=== PATIENT | male | born 1975 | race Caucasian/White ===

== ENCOUNTER 2020-06-09 15:57 | Inpatient (IN) | payer OTHER ==
[2020-06-09 19:30] VITALS: BMI 22.4
--- NOTE | 2020-06-09 20:36 | HP ---
CIWA Score Nausea/Vomitin Muscle Tremors: 3 Anxiety: 3 Agitation: 3 Paroxysmal Sweats: 2 Orientation: 0-Oriented Tacttile Disturbances: 0-None Auditory Disturbances: 0-None Visual Disturbances: 0-None Headache: 0-None Present CIWA-Ar Total Score: 13 - Admission Criteria OASAS Guidelines: Admission for Medically Managed Detox: Requires at least one of the followin. CIWA greater than 12 2. Seizures within the past 24 hours 3. Delirium tremens within the past 24 hours 4. Hallucinations within the past 24 hours 5. Acute intervention needed for co occurring medical disorder 6. Acute intervention needed for co occurring psychiatric disorder 7. Severe withdrawal that cannot be handled at a lower level of care (continued vomiting, continued diarrhea, abnormal vital signs) requiring intravenous medication and/or fluids 8. Admitting History and Physical - Smoking History Smoking history: Current every day smoker Have you smoked in the past 12 months: Yes Aproximately how many cigarettes per day: 20 Admission ROS [facility] - [facility] Chief Complaint: Alcohol withdrawal symptoms, on MMTP Allergies/Adverse Reactions: Allergies Allergy/AdvReac Type Severity Reaction Status Date / Time aspirin Allergy Verified 06/09/20 19:24 Penicillins Allergy Verified 06/09/20 19:24 Seafood Allergy Uncoded 06/09/20 19:24 History of Present Illness: 45 years old male with a long history of alcohol dependence is seeking admission to detox. This is his first detoxification at [facility], his last detox was at [facility]. Patient reports that he drinks 3 pints of Vodka and 1 six pack of beer daily for the past 5 years. He has medical history of asthma, denies psych. history and suicidal ideation at this time. He reports + eye pattern mechanic, blackouts (last blackout was in April 2020) and denies suicidal ideation at this time. He is unemployed, lives alone in an apartment and denies any legal issues. He is on Methadone 50mg tablet oral daily at [facility]. Dose is yet to be verified by nurse. Exam Limitations: No Limitations - Ebola screening Have you traveled outside of the country in the last 21 days: No Have you had contact with anyone from an Ebola affected area: No Have you been sick,other than usual withdrawal symptoms: No Do you have a fever: No - Review of Systems Constitutional: Chills, Loss of Appetite, Malaise, Night Sweats, Changes in sleep EENT: reports: Nose Congestion Respiratory: reports: No Symptoms reported Cardiac: reports: No Symptoms Reported GI: reports: Nausea, Poor Appetite, Poor Fluid Intake, Abdominal cramping : reports: No Symptoms Reported Musculoskeletal: reports: No Symptoms Reported Integumentary: reports: Dryness, Flushing Neuro: reports: Tremors Endocrine: reports: No Symptoms Reported Hematology: reports: No Symptoms Reported Psychiatric: reports: Mood/Affect Appropiate, Orientated x3 Other Systems: Reviewed and Negative Patient History - Patient Medical History Hx Anemia: No Hx Asthma: Yes (Not on medication) Hx Chronic Obstructive Pulmonary Disease (COPD): No Hx Cancer: No Hx Cardiac Disorders: No Hx Congestive Heart Failure: No Hx Hypertension: No Hx Hypercholesterolemia: No Hx Pacemaker: No HX Cerebrovascular Accident: No Hx Seizures: No Hx Dementia: No Hx Diabetes: No Hx Gastrointestinal Disorders: No Hx Liver Disease: No Hx Genitourinary Disorders: No Hx Sexually Transmitted Disorders: No Hx Renal Disease (ESRD): No Hx Thyroid Disease: No Hx Human Immunodeficiency Virus (HIV): No (Negative 2019) Hx Hepatitis C: No Hx Depression: No Hx Suicide Attempt: No (Denies suicidal ideation at this time) Hx Bipolar Disorder: No Hx Schizophrenia: No - Patient Surgical History Past Surgical History: Yes Hx Neurologic Surgery: No Hx Cataract Extraction: No Hx Cardiac Surgery: No Hx Lung Surgery: No Hx Abdominal Surgery: No Hx Appendectomy: No Hx Cholecystectomy: No Hx Genitourinary Surgery: No Hx Orthopedic Surgery: Yes (Jaw surgery 1997) Anesthesia Reaction: No - PPD History Previous Implant?: Yes Documented Results: Negative w/o proof Implanted On Prior R Admission?: No PPD to be Administered?: Yes - Reproductive History Patient is a Female of Child Bearing Age (11 -55 yrs old): No (Male) - Smoking Cessation Smoking history: Current every day smoker Have you smoked in the past 12 months: Yes Aproximately how many cigarettes per day: 20 Hx Chewing Tobacco Use: No Initiated information on smoking cessation: Yes 'Breaking Loose' booklet given: 06/09/20 - Substance & Tx. History Hx Alcohol Use: Yes Hx Substance Use: Yes Substance Use Type: Alcohol, Heroin, Prescribed (Methadone) Hx Substance Use Treatment: Yes (Marius[facility] COVARRUBIAS) - Substances abused Alcohol Substance route: Oral Frequency: Daily Amount used: liquor- 3 pints Vodka, beer- 1 six pk Age of first use: 21 Date of last use: 06/09/20 Heroin Substance route: Inhalation Frequency: Daily Amount used: 10 bags Age of first use: 22 Date of last use: 06/09/20 Admission Physical Exam [facility] - Vital Signs Vital Signs: Vital Signs - 24 hr 06/09/20 19:25 Temperature 97.3 F L Pulse Rate 53 L Respiratory 18 Rate Blood Pressure 132/87 - Physical General Appearance: Yes: Moderate Distress, Tremorous, Sweating, Anxious HEENTM: Yes: Within Normal Limits Respiratory: Yes: Lungs Clear, Normal Breath Sounds, No Respiratory Distress Neck: Yes: Within Normal Limits Breast: Yes: Breast Exam Deferred Cardiology: Yes: Bradycardia Abdominal: Yes: Normal Bowel Sounds, Soft Genitourinary: Yes: Within Normal Limits Back: Yes: Normal Inspection Musculoskeletal: Yes: Within Normal Limits Extremities: Yes: Tremors Neurological: Yes: Within Normal Limits, Alert, Normal Mood/Affect Integumentary: Yes: Warm Lymphatic: Yes: Within Normal Limits - Diagnostic (1) Alcohol dependence with withdrawal, uncomplicated Current Visit: Yes Status: Acute (2) Asthma Current Visit: Yes Status: Chronic Qualifiers: Asthma severity: mild Asthma persistence: intermittent Asthma complication type: uncomplicated Qualified Code(s): J45.20 - Mild intermittent asthma, uncomplicated (3) Nicotine dependence Current Visit: Yes Status: Chronic Qualifiers: Nicotine product type: cigarettes Substance use status: uncomplicated Qualified Code(s): F17.210 - Nicotine dependence, cigarettes, uncomplicated (4) Methadone maintenance therapy patient Current Visit: Yes Status: Chronic Cleared for Admission [facility] - Detox or Rehab [facility] Level of Care: Medically Managed Detox Regimen/Protocol: Librium Claeared for Rehab Admission: No Breathalyzer - Breathalyzer Breathalyzer: 0.003 Urine Drug Screen - Test Device Lot number: [id number] Expiration date: 07/10/22 - Control Is test valid?: No - Results Drug screen NEGATIVE: No Urine drug screen results: FEN-Fentanyl, MOP-Opiates, MTD-Methadone Inpatient Rehab Admission - Rehab Decision to Admit Inpatient rehab admission?: No
[2020-06-09] MEDS ORDERED: ACETAMINOPHEN 325 MG TABLET (FP) PO PRN ×2 (20:44)
[2020-06-09] MEDS ORDERED: MAGNESIUM HYDROX 2400MG/30ML ORAL SUSPENSION 30 ML CUP PO PRN (20:44)
[2020-06-09] MEDS ORDERED: MENTHOL/PHENOL 1 EACH UD MM PRN (20:44)
[2020-06-09] MEDS ORDERED: chlordiazePOXIDE HCL 25 MG CAPSULE PO PRN (20:44)
[2020-06-09] MEDS ORDERED: hydrOXYzine PAMOATE 25 MG CAPSULE (FP) PO PRN (20:44)
[2020-06-09] MEDS ORDERED: MAGNESIUM CITRATE 300 ML BOTTLE PO PRN (20:44)
[2020-06-09] MEDS ORDERED: BISMUTH SUBSALICYLATE 524 MG/30 ML UD PO PRN (20:44)
[2020-06-09] MEDS ORDERED: NICOTINE POLACRILEX 2 MG GUM BUC PRN (20:44)
[2020-06-09] MEDS ORDERED: ONDANSETRON *ODT* 4 MG TABLET SL ONE (20:44)
[2020-06-09] MEDS: MELATONIN 5 MG TABLETS PO SCH (22:14)
[2020-06-09] MEDS: chlordiazePOXIDE HCL 25 MG CAPSULE PO SCH (22:14)
[2020-06-09] MEDS: THIAMINE HCL 100 MG TABLET (FP) PO SCH (22:15)
[2020-06-10] MEDS: chlordiazePOXIDE HCL 25 MG CAPSULE PO SCH ×4 (05:41→22:11)
[2020-06-10] MEDS: PRENATAL VITAMINS W/ FOLIC ACID TABLET (FP) PO SCH (10:11)
[2020-06-10] MEDS: NICOTINE 21 MG/24 HOURS TOPICAL PATCH TD SCH (10:11)
[2020-06-10] MEDS ORDERED: P-EPHED 60MG/TRIPROLIDI 2.5MG TABLET PO PRN (10:19)
[2020-06-10 10:55] LABS: HEMATOCRIT 36.5 % (35.4-49); HEMOGLOBIN 11.5 GM/dL (11.7-16.9); MCHC 31.6 g/dl (32.0-35.9); MEAN CELL VOLUME 82.1 fl (80-96); MEAN PLT VOLUME 8.3 fl (7.5-11.1); PLATELET COUNT 257 K/MM3 (134-434); RBC 4.44 M/mm3 (4.00-5.60); RDW 17.4 % (11.9-15.9); WHITE BLOOD COUNT 6.4 K/mm3 (4.0-10.0)
--- NOTE | 2020-06-10 11:16 | CONSULT ---
[facility] Psychiatric Consult - Data Date of interview: 06/10/20 Admission source: [facility] Identifying data: First visit to [facility] and admission to [address] [place] [address] for this 45 y/o male self-referred for detoxification treatment. JOVANY issues : alcohol, heroin, benzodiazepine (xanax), nicotine. Patient is , no dependents, unemployed, homeless and supported on Public Assistance. Substance Abuse History: Discussed with the patient. JOVANY profile as follows : Smoking history: Current every day smoker. Have you smoked in the past 12 months: Yes. Aproximately how many cigarettes per day: 20. Hx Chewing Tobacco Use: No. Initiated information on smoking cessation: Yes. 'Breaking Loose' booklet given: 06/09/20. - Substance & Tx. History. Hx Alcohol Use: Yes. Hx Substance Use: Yes. Substance Use Type: Alcohol, Heroin, Prescribed (Methadon e). Hx Substance Use Treatment: Yes ([facility]arius[facility] COVARRUBIAS). - Substances abused. Alcohol. Substance route: Oral. Frequency: Daily. Amount used: liquor- 3 pints Vodka, beer- 1 six pk. Age of first use: 21. Date of last use: 06/09/20. Heroin. Substance route: Inhalation. Frequency: Daily. Amount used: 10 bags. Age of first use: 22. Date of last use: 06/09/20 Medical History: Medical profile is remarkable for bronchial asthma + antecedent of surgery (fracture of jaw) in 1997. Noted report of allergy to ASA and penicillins. Psychiatric History: Patient endorses a distant history (seven years ago) of psychiatric hospitalization (3 day retention) at [facility] [place] " because of a misunderstanding." Mr Huerta explains that he was brought to the hospital while " high on drugs " and kept because of suicidal threats. Currently the patient is on methadone maintenance (50 mg/day) at [facility]. No history of suicide attempts. Physical/Sexual Abuse/Trauma History: Recent trauma : of (pneumonia). Additional Comment: Urine drug screen results: FEN-Fentanyl, MOP-Opiates, MTD- Methadone. Noted. Mental Status Exam - Mental Status Exam Alert and Oriented to: Time, Place, Person Cognitive Function: Good Patient Appearance: Well Groomed Mood: Withdrawn, Hopeful Affect: Mood Congruent, Constricted Patient Behavior: Fatigued, Appropriate, Cooperative Speech Pattern: Clear, Appropriate Voice Loudness: Normal Thought Process: Intact, Goal Oriented Thought Disorder: Not Present Hallucinations: Denies Suicidal Ideation: Denies Homicidal Ideation: Denies Insight/Judgement: Poor Sleep: Poorly, Difficulty falling asleep Appetite: Good Gait/Station: Normal Psychiatric Findings - Problem List ([place] 1, 2,3) (1) Alcohol dependence with withdrawal, uncomplicated Current Visit: Yes Status: Acute (2) Opioid dependence on agonist therapy Current Visit: Yes Status: Chronic (3) Nicotine dependence Current Visit: Yes Status: Chronic Qualifiers: Nicotine product type: cigarettes Substance use status: uncomplicated Qualified Code(s): F17.210 - Nicotine dependence, cigarettes, uncomplicated (4) Substance induced mood disorder Current Visit: Yes Status: Chronic (5) Insomnia Current Visit: Yes Status: Chronic - Initial Treatment Plan Initial Treatment Plan: Psychoeducation. Sleep hygiene. Detoxification in progress. Support and empathy provided in this session. Patient reports history of good response to trazodone in the past. Wants inclusion of that drug in his current regimen of medications. Trazodone 50 mg po hs. Ordered after discussion of side effects/benefits. Patient made aware of risk of priapism. Gave his consent to MD (verbal). Observation.
[2020-06-10] MEDS: METHADONE HCL 10 MG TABLET PO SCH (11:32)
[2020-06-10 11:38] LABS: SICKLE CELL SCREEN NEGATIVE (NEGATIVE)
--- NOTE | 2020-06-10 11:43 | PN ---
[facility] CIWA - CIWA Score Nausea/Vomitin-No Nausea/No Vomiting Muscle Tremors: 2 Anxiety: 3 Agitation: 0-Normal Activity Paroxysmal Sweats: 3 Orientation: 0-Oriented Tacttile Disturbances: 0-None Auditory Disturbances: 0-None Visual Disturbances: 0-None Headache: 2-Mild CIWA-Ar Total Score: 10 S Progress Note (SOAP) Subjective: c/o sweats, anxiety, shakes, and headache. Objective: 06/10/20 11:42 Vital Signs 06/10/20 06/10/20 06:47 08:43 Temperature 98.2 F 97.4 F L Pulse Rate 56 L 55 L Respiratory 18 18 Rate Blood Pressure 118/73 125/80 O2 Sat by Pulse 96 Oximetry (%) Laboratory Last Values WBC 6.4 K/mm3 (4.0-10.0) 06/10/20 07:30 RBC 4.44 M/mm3 (4.00-5.60) 06/10/20 07:30 Hgb 11.5 GM/dL (11.7-16.9) L 06/10/20 07:30 Hct 36.5 % (35.4-49) 06/10/20 07:30 MCV 82.1 fl (80-96) 06/10/20 07:30 MCH 26.0 pg (25.7-33.7) 06/10/20 07:30 MCHC 31.6 g/dl (32.0-35.9) L 06/10/20 07:30 RDW 17.4 % (11.9-15.9) H 06/10/20 07:30 Plt Count 257 K/MM3 (134-434) 06/10/20 07:30 MPV 8.3 fl (7.5-11.1) 06/10/20 07:30 Sickle Cell Screen Negative (NEGATIVE) 06/10/20 07:30 Syphilis Serology Non-reactive (NONREACTIVE) 06/10/20 07:30 chemistry pending. Assessment: 06/10/20 11:44 AOX3, in no acute respiratory distress. Full ROM, ambulating in the unit. Withdrawal symptoms. Plan: continue detox.
[2020-06-10 12:58] LABS: ALBUMIN 3.2 g/dl (3.4-5.0); BILIRUBIN,TOTAL 0.4 mg/dL (0.2-1); CALCIUM 8.6 mg/dL (8.5-10.1); POTASSIUM 3.9 mmol/L (3.5-5.1); TOT PROT 6.1 g/dl (6.4-8.2)
[2020-06-10] MEDS: MAG HYDROX/AL HYDROX/SIMETH 30 ML UNIT-DOSE CUP PO PRN (20:18)
[2020-06-10] MEDS: MELATONIN 5 MG TABLETS PO SCH (22:11)
[2020-06-10] MEDS: traZODone HCL 50 MG TABLET (FP) PO SCH (22:11)
[2020-06-10] MEDS: THIAMINE HCL 100 MG TABLET (FP) PO SCH (22:11)
[2020-06-11] MEDS: METHADONE HCL 10 MG TABLET PO SCH (05:50)
[2020-06-11] MEDS: chlordiazePOXIDE HCL 25 MG CAPSULE PO SCH ×4 (05:51→23:13)
[2020-06-11] MEDS: traZODone HCL 50 MG TABLET (FP) PO SCH (09:30)
--- NOTE | 2020-06-11 10:07 | PN ---
S CIWA - CIWA Score Nausea/Vomitin-Mild Nausea/No Vomiting Muscle Tremors: 2 Anxiety: 2 Agitation: 0-Normal Activity Paroxysmal Sweats: No Perspiration Orientation: 0-Oriented Tacttile Disturbances: 0-None Auditory Disturbances: 0-None Visual Disturbances: 2-Mild Sensitivity Headache: 2-Mild CIWA-Ar Total Score: 9 BHS Progress Note (SOAP) Subjective: 45 years old male admitted on 06/09/20 for alcohol withdrawal sx management treating with librium detox regiment received methadone 50mg po today feeling ok today ate breakfast in room social with peers in day room states that returning to methadone program for behavior and psychosocial therapies as well as housing and employment Objective: 06/11/20 10:09 Vital Signs - 24 hr 06/10/20 06/10/20 06/10/20 12:29 14:36 20:56 Temperature 97.3 F L 97.1 F L 97.1 F L Pulse Rate 54 L 51 L 51 L Respiratory 18 16 18 Rate Blood Pressure 130/91 125/89 133/88 O2 Sat by Pulse 99 96 Oximetry (%) 06/11/20 06/11/20 05:22 09:02 Temperature 97.5 F L 97.1 F L Pulse Rate 52 L 59 L Respiratory 18 16 Rate Blood Pressure 89/58 L 127/79 O2 Sat by Pulse 96 Oximetry (%) Laboratory Tests 06/10/20 06/10/20 06/10/20 07:30 07:30 07:30 WBC 6.4 RBC 4.44 Hgb 11.5 L Hct 36.5 MCV 82.1 MCH 26.0 MCHC 31.6 L RDW 17.4 H Plt Count 257 MPV 8.3 Sickle Cell Screen Negative Sodium 141 Potassium 3.9 Chloride 107 Carbon Dioxide 29 Anion Gap 5 L BUN 7.0 Creatinine 1.0 Est GFR (CKD-EPI)AfAm 106.36 Est GFR (CKD-EPI)NonAf 91.77 Random Glucose 83 Calcium 8.6 Total Bilirubin 0.4 AST 12 L ALT 13 Alkaline Phosphatase 70 Total Protein 6.1 L Albumin 3.2 L Syphilis Serology Non-reactive 06/11/20 10:10 covid pending Assessment: 06/11/20 10:10 alcohol withdrawal 06/11/20 10:11 methadone maintenance program Plan: librium regiment methadone 50mg po
[2020-06-11] MEDS: NICOTINE 21 MG/24 HOURS TOPICAL PATCH TD SCH (10:26)
[2020-06-11] MEDS: PRENATAL VITAMINS W/ FOLIC ACID TABLET (FP) PO SCH (10:26)
[2020-06-11] MEDS ORDERED: ALBUTEROL SO4 HFA INHALER IH PRN (15:37)
[2020-06-11] MEDS ORDERED: ALBUTEROL SO4 2.5/IPRATROPIUM 0.5 INH SOL 3 ML VIAL.NEB. NEB ONE (15:38)
[2020-06-11] MEDS ORDERED: ALBUTEROL SO4 0.083% IH SOL 2.5 MG/3 ML VIAL.NEB. NEB PRN (21:56)
[2020-06-11] MEDS: MELATONIN 5 MG TABLETS PO SCH (23:14)
[2020-06-11] MEDS: THIAMINE HCL 100 MG TABLET (FP) PO SCH (23:14)
[2020-06-11] MEDS: MAG HYDROX/AL HYDROX/SIMETH 30 ML UNIT-DOSE CUP PO PRN (23:33)
[2020-06-12] MEDS: chlordiazePOXIDE HCL 10 MG CAPSULE PO PRN ×2 (00:50→12:40)
[2020-06-12] MEDS: METHOCARBAMOL 500 MG TABLET PO PRN ×2 (00:50→17:38)
[2020-06-12] MEDS: METHADONE HCL 10 MG TABLET PO SCH (05:26)
[2020-06-12] MEDS: chlordiazePOXIDE HCL 10 MG CAPSULE PO SCH ×4 (05:26→22:03)
[2020-06-12] MEDS ORDERED: chlordiazePOXIDE HCL 10 MG CAPSULE PO ONE (09:33)
--- NOTE | 2020-06-12 09:35 | PN ---
S CIWA - CIWA Score Nausea/Vomitin-No Nausea/No Vomiting Muscle Tremors: 3 Anxiety: 2 Agitation: 1-Slight > Activity Paroxysmal Sweats: No Perspiration Orientation: 0-Oriented Tacttile Disturbances: 0-None Auditory Disturbances: 0-None Visual Disturbances: 0-None Headache: 0-None Present CIWA-Ar Total Score: 6 BHS Progress Note (SOAP) Subjective: 45 years old male admitted on 06/09/20 for alcohol withdrawal sx management treating with librium detox regiment requests to be seen by a psychiatrist for anxiety increase vistaril to 50 mg po psychiatry referral reports tremor requests one extra dose of librium librium 10 mg po x 1 Objective: 06/12/20 09:38 Vital Signs - 24 hr 06/11/20 06/11/20 06/11/20 12:52 16:18 16:34 Temperature 97.5 F L 97.5 F L Pulse Rate 53 L 56 L 77 Respiratory 18 18 Rate Blood Pressure 98/65 123/86 O2 Sat by Pulse 96 96 Oximetry (%) 06/11/20 06/11/20 06/12/20 20:54 23:25 06:00 Temperature 97.5 F L 97.5 F L Pulse Rate 75 69 Respiratory 16 18 Rate Blood Pressure 133/86 109/69 O2 Sat by Pulse 84 L 93 L 97 Oximetry (%) 06/12/20 08:48 Temperature 98.2 F Pulse Rate 93 H Respiratory 20 Rate Blood Pressure 106/73 O2 Sat by Pulse Oximetry (%) Laboratory Tests 06/10/20 06/10/20 06/10/20 07:30 07:30 07:30 WBC 6.4 RBC 4.44 Hgb 11.5 L Hct 36.5 MCV 82.1 MCH 26.0 MCHC 31.6 L RDW 17.4 H Plt Count 257 MPV 8.3 Sickle Cell Screen Negative Sodium 141 Potassium 3.9 Chloride 107 Carbon Dioxide 29 Anion Gap 5 L BUN 7.0 Creatinine 1.0 Est GFR (CKD-EPI)AfAm 106.36 Est GFR (CKD-EPI)NonAf 91.77 Random Glucose 83 Calcium 8.6 Total Bilirubin 0.4 AST 12 L ALT 13 Alkaline Phosphatase 70 Total Protein 6.1 L Albumin 3.2 L Syphilis Serology Non-reactive COVID-19 (BECK) 08/01/20 09:05 WBC RBC Hgb Hct MCV MCH MCHC RDW Plt Count MPV Sickle Cell Screen Sodium Potassium Chloride Carbon Dioxide Anion Gap BUN Creatinine Est GFR (CKD-EPI)AfAm Est GFR (CKD-EPI)NonAf Random Glucose Calcium Total Bilirubin AST ALT Alkaline Phosphatase Total Protein Albumin Syphilis Serology COVID-19 (BECK) Not detected lab noted Assessment: 06/12/20 09:38 alcohol withdrawal anxiety Plan: librium regiment vistaril 50mg po psychiatry referral librium 10 mg po x 1
[2020-06-12] MEDS ORDERED: hydrOXYzine PAMOATE 50 MG CAPSULE (FP) PO PRN (10:00)
--- NOTE | 2020-06-12 10:28 | EKG ---
Test Reason : Blood Pressure : / mmHG Vent. Rate : 046 BPM Atrial Rate : 046 BPM P-R Int : 146 ms QRS Dur : 086 ms QT Int : 458 ms P-R-T Axes : 051 080 039 degrees QTc Int : 400 ms SINUS BRADYCARDIA OTHERWISE NORMAL ECG NO PREVIOUS ECGS AVAILABLE Confirmed by Ole Reyes ([id number]) on 06/12/2020 10:27:44 AM Referred By: Confirmed By:Ole Reyes
[2020-06-12] MEDS: PRENATAL VITAMINS W/ FOLIC ACID TABLET (FP) PO SCH (10:35)
[2020-06-12] MEDS: NICOTINE 21 MG/24 HOURS TOPICAL PATCH TD SCH (10:36)
--- NOTE | 2020-06-12 16:57 | PN ---
Psychiatric Progress Note Vital Signs: Vital Signs Period Temp Pulse Resp BP Sys/Wilson Pulse Ox Last 24 Hr 97.5 F-98.2 F 68-93 16-20 104-133/69-86 84-97 Date of Session: 06/12/20 Chief Complaint:: " I feel anxious and depressed." HPI: Day 3 of detoxification. Patient has requested to see the psychiatrist for complaints of insomnia and depressed mood. Hospital course is otherwise unremarkable. Patient is observed ambulating on unit, well groomed and socializing with his peers. Mr Huerta is asking for an increase of his dose of trazodone and " something " for anxiety. ROS: Unremarkable. Current Medications: Active Medications Generic Name Dose Route Start Last Admin Trade Name Freq PRN Reason Stop Dose Admin Acetaminophen 650 mg 06/09/20 20:44 06/09/20 22:16 Tylenol - PO 650 mg Q6H PRN Administration PAIN LEVEL 4 - 6 Acetaminophen 650 mg 06/09/20 20:44 Tylenol - PO Q6H PRN FEVER Al Hydroxide/Mg Hydroxide 30 ml 06/09/20 20:44 06/11/20 23:33 Mylanta Oral Suspension - PO 30 ml Q6H PRN Administration DYSPEPSIA Albuterol Sulfate 2 puff 06/11/20 15:37 06/11/20 20:57 Ventolin Hfa Inhaler - IH 2 puff Q4H PRN Administration SHORT OF BREATH/WHEEZING Albuterol Sulfate 1 amp 06/11/20 21:56 Ventolin 0.083% Nebulizer Soln - NEB Q1H PRN SHORT OF BREATH/WHEEZING Bismuth Subsalicylate 524 mg 06/09/20 20:44 Pepto-Bismol - PO Q1H PRN DIARRHEA Chlordiazepoxide HCl 10 mg 06/12/20 05:00 06/12/20 10:36 Librium - PO 06/12/20 23:01 10 mg [id number] GEOFFREY Administration Chlordiazepoxide HCl 10 mg 06/13/20 05:00 Librium - PO 06/13/20 17:01 Q12H GEOFFREY Chlordiazepoxide HCl 10 mg 06/12/20 00:00 06/12/20 12:40 Librium - PO 06/13/20 00:00 10 mg Q4H PRN Administration WITHDRAWAL(CONT SUBST) Chlordiazepoxide HCl 10 mg 06/14/20 05:00 Librium - PO 06/14/20 05:01 ONCE@0500 ONE Eucalyptus/Menthol/Phenol/Sorbitol 1 each 06/09/20 20:44 Cepastat Lozenge - MM 06/15/20 20:45 Q4H PRN SORE THROAT Hydroxyzine Pamoate 50 mg 06/12/20 10:00 Vistaril - PO Q6H PRN ANXIETY Magnesium Citrate 300 ml 06/09/20 20:44 Citroma - PO Q48H PRN CONSTIPATION Magnesium Hydroxide 30 ml 06/09/20 20:44 Milk Of Magnesia - PO PRN PRN CONSTIPATION Melatonin 5 mg 06/09/20 22:00 06/11/20 23:14 Melatonin PO Not Given HS GEOFFREY Methadone HCl 50 mg 06/10/20 10:30 06/12/20 05:26 Dolophine - PO 50 mg DAILY@0600 GEOFFREY Administration Methocarbamol 500 mg 06/09/20 20:44 06/12/20 00:50 Robaxin - PO 06/15/20 20:45 500 mg Q6H PRN Administration MUSCLE SPASMS Nicotine 21 mg 06/10/20 10:00 06/12/20 10:36 Nicoderm Patch - TD 21 mg DAILY GEOFFREY Administration Nicotine Polacrilex 2 mg 06/09/20 20:44 Nicorette Gum - BUC Q2H PRN NICOTINE REPLACEMENT RX Multivit/Folic Acid/Iron 1 tab 06/10/20 10:00 06/12/20 10:35 Vitamins (Sjr) - PO 1 tab DAILY GEOFFREY Administration Pseudoephedrine/Triprolidine 1 combo 06/10/20 10:19 06/10/20 11:33 Actifed - PO 1 combo Q6H PRN Administration NASAL CONGESTION Thiamine HCl 100 mg 06/09/20 22:00 06/11/20 23:14 Vitamin B1 - PO Not Given HS GEOFFREY Trazodone HCl 50 mg 06/10/20 22:00 06/11/20 09:30 Desyrel - PO Not Given HS GEOFFREY Medication(s) Change(s): Trazodone is raised to 100 mg po hs. Augmented with seroquel 50 mg po bid. Side effects/benefits discussed with the patient. Mr Huerta is in agreement with this plan of care. Current Side Effect: No Lab tests ordered: No Lab tests reviewed: Yes Provider note:: Met with the patient. Mr Huerta is upset over his recent loss ( of his ). He spends a great deal of time revisiting with this justowriter operator his emotions during 's hospitalization (ICU for more than two months). Feels depressed and anxious. Denies suicidal ideation, intent or plan. Able to ventilate his feelings. Patient expresses concern about his current status of homelessness. He is contemplating transition to director long term care rehabilitation treatment. Mental status is stable. See MSE report for details. Continue deto xification and assist the patient (social work team) in his plan to enlist in a rehabilitation program. Total face to face time:: 35 Mental Status Exam - Mental Status Exam Alert and Oriented to: Time, Place, Person Cognitive Function: Good Patient Appearance: Well Groomed Mood: Sad, Withdrawn, Anxious Affect: Mood Congruent, Constricted Patient Behavior: Fatigued, Appropriate, Cooperative Speech Pattern: Clear, Appropriate Voice Loudness: Normal Thought Process: Intact, Goal Oriented Thought Disorder: Not Present Hallucinations: Denies Suicidal Ideation: Denies Homicidal Ideation: Denies Insight/Judgement: Poor Sleep: Poorly, Difficulty falling asleep Appetite: Good Gait/Station: Normal Psychiatric Treatment Plan - Problem List (1) Bereavement Current Visit: Yes Comment: two months ago, as per self-report. (2) Alcohol dependence with withdrawal, uncomplicated Current Visit: Yes Comment: . (3) Opioid dependence on agonist therapy Current Visit: Yes Comment: . (4) Nicotine dependence Current Visit: Yes Qualifiers: Nicotine product type: cigarettes Substance use status: uncomplicated Qualified Code(s): F17.210 - Nicotine dependence, cigarettes, uncomplicated Comment: . (5) Substance induced mood disorder Current Visit: Yes Comment: . (6) Insomnia Current Visit: Yes Comment: .
[2020-06-12] MEDS: traZODone HCL 50 MG TABLET (FP) PO SCH (22:03)
[2020-06-12] MEDS: QUEtiapine FUMARATE 50 MG TABLET PO SCH (22:04)
[2020-06-12] MEDS: THIAMINE HCL 100 MG TABLET (FP) PO SCH (22:04)
[2020-06-12] MEDS: MELATONIN 5 MG TABLETS PO SCH (22:05)
[2020-06-13] MEDS: chlordiazePOXIDE HCL 10 MG CAPSULE PO SCH ×2 (06:08→17:22)
[2020-06-13] MEDS: METHADONE HCL 10 MG TABLET PO SCH (06:08)
[2020-06-13] MEDS: PRENATAL VITAMINS W/ FOLIC ACID TABLET (FP) PO SCH (10:25)
[2020-06-13] MEDS: METHOCARBAMOL 500 MG TABLET PO PRN (10:25)
[2020-06-13] MEDS: QUEtiapine FUMARATE 50 MG TABLET PO SCH ×2 (10:25→21:31)
[2020-06-13] MEDS: NICOTINE 21 MG/24 HOURS TOPICAL PATCH TD SCH (10:27)
--- NOTE | 2020-06-13 11:39 | PN ---
S CIWA - CIWA Score Nausea/Vomitin-Mild Nausea/No Vomiting Muscle Tremors: 2 Anxiety: 2 Agitation: 2 Paroxysmal Sweats: No Perspiration Orientation: 0-Oriented Tacttile Disturbances: 0-None Auditory Disturbances: 0-None Visual Disturbances: 0-None Headache: 1-Very Mild CIWA-Ar Total Score: 8 BHS Progress Note (SOAP) Subjective: alert,irritable,interrupted sleep,anxious,nausea,aching pain in the body Objective: 06/13/20 11:46 Vital Signs Temperature 97.1 F L 06/13/20 08:48 Pulse Rate 78 06/13/20 08:48 Respiratory Rate 16 06/13/20 08:48 Blood Pressure 116/69 06/13/20 08:48 O2 Sat by Pulse Oximetry (%) 97 06/13/20 06:05 06/13/20 11:46 Laboratory Last Values WBC 6.4 K/mm3 (4.0-10.0) 06/10/20 07:30 RBC 4.44 M/mm3 (4.00-5.60) 06/10/20 07:30 Hgb 11.5 GM/dL (11.7-16.9) L 06/10/20 07:30 Hct 36.5 % (35.4-49) 06/10/20 07:30 MCV 82.1 fl (80-96) 06/10/20 07:30 MCH 26.0 pg (25.7-33.7) 06/10/20 07:30 MCHC 31.6 g/dl (32.0-35.9) L 06/10/20 07:30 RDW 17.4 % (11.9-15.9) H 06/10/20 07:30 Plt Count 257 K/MM3 (134-434) 06/10/20 07:30 MPV 8.3 fl (7.5-11.1) 06/10/20 07:30 Sickle Cell Screen Negative (NEGATIVE) 06/10/20 07:30 Sodium 141 mmol/L (136-145) 06/10/20 07:30 Potassium 3.9 mmol/L (3.5-5.1) 06/10/20 07:30 Chloride 107 mmol/L (98-107) 06/10/20 07:30 Carbon Dioxide 29 mmol/L (21-32) 06/10/20 07:30 Anion Gap 5 MMOL/L (8-16) L 06/10/20 07:30 BUN 7.0 mg/dL (7-18) 06/10/20 07:30 Creatinine 1.0 mg/dL (0.55-1.3) 06/10/20 07:30 Est GFR (CKD-EPI)AfAm 106.36 06/10/20 07:30 Est GFR (CKD-EPI)NonAf 91.77 06/10/20 07:30 Random Glucose 83 mg/dL (74-106) 06/10/20 07:30 Calcium 8.6 mg/dL (8.5-10.1) 06/10/20 07:30 Total Bilirubin 0.4 mg/dL (0.2-1) 06/10/20 07:30 AST 12 U/L (15-37) L 06/10/20 07:30 ALT 13 U/L (13-61) 06/10/20 07:30 Alkaline Phosphatase 70 U/L (45-117) 06/10/20 07:30 Total Protein 6.1 g/dl (6.4-8.2) L 06/10/20 07:30 Albumin 3.2 g/dl (3.4-5.0) L 06/10/20 07:30 Syphilis Serology Non-reactive (NONREACTIVE) 06/10/20 07:30 COVID-19 (BECK) Not detected (Not Detected) 06/10/20 09:05 Assessment: 06/13/20 11:47 withdrawal symptom Plan: continue detox librium regimen,zofran 4 mgs sl q 6 hrs prn,discharge in am
[2020-06-13] MEDS ORDERED: ONDANSETRON *ODT* 4 MG TABLET SL PRN (11:48)
[2020-06-13] MEDS ORDERED: predniSONE 20 MG TABLET (UD) PO ONE (15:45)
[2020-06-13] MEDS ORDERED: ALBUTEROL SO4 2.5/IPRATROPIUM 0.5 INH SOL 3 ML VIAL.NEB. NEB PRN (15:49)
--- NOTE | 2020-06-13 15:49 | PN ---
[facility] Progress Note Note: long history of asthma and cigarette smoker report o2 sat 88 after ventilin and nebulizer observed mr nola lying on bed semi follow position good eye contact wheezing bilaterally asthma prednison 60 mg po today and 40 mg tomorror
[2020-06-13] MEDS ORDERED: MASKS NR ONE (17:22)
[2020-06-13] MEDS: MELATONIN 5 MG TABLETS PO SCH (21:31)
[2020-06-13] MEDS: traZODone HCL 50 MG TABLET (FP) PO SCH (21:31)
[2020-06-13] MEDS: THIAMINE HCL 100 MG TABLET (FP) PO SCH (21:31)
[2020-06-14] MEDS ORDERED: chlordiazePOXIDE HCL 10 MG CAPSULE PO ONE (05:00)
[2020-06-14] MEDS ORDERED: predniSONE 20 MG TABLET (UD) PO ONE (05:00)
[2020-06-14] MEDS: METHADONE HCL 10 MG TABLET PO SCH (05:59)
--- NOTE | 2020-06-14 09:11 | DS ---
[facility] Detox Discharge Summary Admission Date: 06/09/20 Discharge Date: 06/14/20 - History Present History: Alcohol Dependence, MMTP Additional Comments: alert,oriented x 3 ambulation on the unit lung clear on auscultation bilaterally abdomen soft,no pin,no tenderness no swelling of legs detox completed,no withdrawal symptom stable for discharge today follow up with after care program [facility] time spending on discharge 35 minutes Pertinent Past History: asthma insomnia anxiety depression - Physical Exam Results Vital Signs: Vital Signs Temperature 97.1 F L 06/14/20 06:33 Pulse Rate 55 L 06/14/20 06:33 Respiratory Rate 18 06/14/20 06:33 Blood Pressure 130/76 06/14/20 06:33 O2 Sat by Pulse Oximetry (%) 97 06/14/20 06:33 Pertinent Admission Physical Exam Findings: withdrawal signs and symptom Laboratory Last Values WBC 6.4 K/mm3 (4.0-10.0) 06/10/20 07:30 RBC 4.44 M/mm3 (4.00-5.60) 06/10/20 07:30 Hgb 11.5 GM/dL (11.7-16.9) L 06/10/20 07:30 Hct 36.5 % (35.4-49) 06/10/20 07:30 MCV 82.1 fl (80-96) 06/10/20 07:30 MCH 26.0 pg (25.7-33.7) 06/10/20 07:30 MCHC 31.6 g/dl (32.0-35.9) L 06/10/20 07:30 RDW 17.4 % (11.9-15.9) H 06/10/20 07:30 Plt Count 257 K/MM3 (134-434) 06/10/20 07:30 MPV 8.3 fl (7.5-11.1) 06/10/20 07:30 Sickle Cell Screen Negative (NEGATIVE) 06/10/20 07:30 Sodium 141 mmol/L (136-145) 06/10/20 07:30 Potassium 3.9 mmol/L (3.5-5.1) 06/10/20 07:30 Chloride 107 mmol/L (98-107) 06/10/20 07:30 Carbon Dioxide 29 mmol/L (21-32) 06/10/20 07:30 Anion Gap 5 MMOL/L (8-16) L 06/10/20 07:30 BUN 7.0 mg/dL (7-18) 06/10/20 07:30 Creatinine 1.0 mg/dL (0.55-1.3) 06/10/20 07:30 Est GFR (CKD-EPI)AfAm 106.36 06/10/20 07:30 Est GFR (CKD-EPI)NonAf 91.77 06/10/20 07:30 Random Glucose 83 mg/dL (74-106) 06/10/20 07:30 Calcium 8.6 mg/dL (8.5-10.1) 06/10/20 07:30 Total Bilirubin 0.4 mg/dL (0.2-1) 06/10/20 07:30 AST 12 U/L (15-37) L 06/10/20 07:30 ALT 13 U/L (13-61) 06/10/20 07:30 Alkaline Phosphatase 70 U/L (45-117) 06/10/20 07:30 Total Protein 6.1 g/dl (6.4-8.2) L 06/10/20 07:30 Albumin 3.2 g/dl (3.4-5.0) L 06/10/20 07:30 Syphilis Serology Non-reactive (NONREACTIVE) 06/10/20 07:30 COVID-19 (BECK) Not detected (Not Detected) 06/10/20 09:05 Vital Signs Temperature 97.1 F L 06/14/20 08:30 Pulse Rate 54 L 06/14/20 08:30 Respiratory Rate 18 06/14/20 08:30 Blood Pressure 103/67 06/14/20 08:30 O2 Sat by Pulse Oximetry (%) 97 06/14/20 06:33 - Treatment Hospital Course: Detox Protocol Followed, Detoxed Safely, Responded well, Discharged Condition Good, Rehab Referral Accepted Patient has Accepted a Rehab Referral to: [facility] - Medication Discharge Medications: Ambulatory Orders NK [No Known Home Medication] 06/09/20 - Diagnosis (1) Alcohol dependence with withdrawal, uncomplicated Current Visit: Yes Status: Acute (2) Asthma Current Visit: Yes Status: Chronic Qualifiers: Asthma severity: mild Asthma persistence: intermittent Asthma complication type: uncomplicated Qualified Code(s): J45.20 - Mild intermittent asthma, uncomplicated (3) Insomnia Current Visit: Yes Status: Chronic (4) Methadone maintenance therapy patient Current Visit: Yes Status: Chronic (5) Nicotine dependence Current Visit: Yes Status: Chronic Qualifiers: Nicotine product type: cigarettes Substance use status: uncomplicated Qualified Code(s): F17.210 - Nicotine dependence, cigarettes, uncomplicated (6) Opioid dependence on agonist therapy Current Visit: Yes Status: Chronic (7) Substance induced mood disorder Current Visit: Yes Status: Chronic - AMA Did Patient Leave Against Medical Advice: No
--- NOTE | 2020-06-14 09:11 | PN ---
[facility] CIWA - CIWA Score Nausea/Vomitin-No Nausea/No Vomiting Muscle Tremors: None Anxiety: 1-Mildly Anxious Agitation: 0-Normal Activity Paroxysmal Sweats: No Perspiration Orientation: 0-Oriented Tacttile Disturbances: 0-None Auditory Disturbances: 0-None Visual Disturbances: 0-None Headache: 0-None Present CIWA-Ar Total Score: 1 S Progress Note (SOAP) Subjective: alert,no complaint Objective: 06/14/20 09:07 Vital Signs Temperature 97.1 F L 06/14/20 06:33 Pulse Rate 55 L 06/14/20 06:33 Respiratory Rate 18 06/14/20 06:33 Blood Pressure 130/76 06/14/20 06:33 O2 Sat by Pulse Oximetry (%) 97 06/14/20 06:33 Assessment: 06/14/20 09:07 detox completed,no withdrawal symptom 06/14/20 09:08 lung clear on auscultation bilaterally Plan: stable for discharge to day to rehab
[2020-06-14] MEDS: PRENATAL VITAMINS W/ FOLIC ACID TABLET (FP) PO SCH (10:24)
[2020-06-14] MEDS: NICOTINE 21 MG/24 HOURS TOPICAL PATCH TD SCH (10:25)
[2020-06-14] MEDS: QUEtiapine FUMARATE 50 MG TABLET PO SCH (10:25)
[2020-06-14 13:03] VITALS: BP 114/72; PULSE 60; TEMP 97.3
== END 2020-06-14 14:09 | disposition other institution (70) | DRG 773 ==
LOC: YASAS 15:57 → Y3N 20:38
PROVIDERS: ADMIT Allergy & Immunology; ATTEND Allergy & Immunology
PROC: HZ2ZZZZ Detoxification Services for Substance Abuse Treatment (ICD-10-PCS; principal; 2020-06-09)
DX: F10.230 Alcohol dependence with withdrawal, uncomplicated (principal); F11.20 Opioid dependence, uncomplicated; F17.210 Nicotine dependence, cigarettes, uncomplicated; F19.24 Other psychoactive substance dependence with psychoactive substance-induced mood disorder; F41.9 Anxiety disorder, unspecified; G47.00 Insomnia, unspecified; R00.1 Bradycardia, unspecified; Z91.013 Allergy to seafood; Z88.0 Allergy status to penicillin; Z88.6 Allergy status to analgesic agent; Z63.4 Disappearance and death of family member; Z59.0 Homelessness
CPT/HCPCS: 36415; 80053; 85027; 85660; 86780; 93005; 93010; 94640; Q0162; U0003

== ENCOUNTER 2020-06-14 13:48 | Inpatient (IN) | payer OTHER ==
--- NOTE | 2020-06-14 14:02 | HP ---
[facility] Rehab Assess/Revision - Admission History Admitted to Rehab from: [facility] Date of Admission to Rehab: 06/14/20 - Findings Detox History & Physical reviewed: Yes Concur with findings: Yes Comments/Additional Findings: for rehab as protocol Inpatient Rehab Admission - Rehab Decision to Admit Inpatient rehab admission?: Yes - Initial Determination Are CD services needed?: Yes Free of communicable disease: Yes Not in need of hospitalization: Yes - Rehab Admission Criteria Previous failed treatment: Yes Poor recovery environment: Yes Comorbidities: Yes Lacks judgement: No Patient is meeting Inpatient Rehab admission criteria:: Yes
[2020-06-14] MEDS ORDERED: NICOTINE POLACRILEX 2 MG GUM BUC PRN (15:09)
[2020-06-14] MEDS ORDERED: MAGNESIUM HYDROX 2400MG/30ML ORAL SUSPENSION 30 ML CUP PO PRN (15:09)
[2020-06-14] MEDS ORDERED: MENTHOL/PHENOL 1 EACH UD MM PRN (15:09)
[2020-06-14] MEDS ORDERED: guaiFENesin 200 MG/10 ML 10 ML UNIT-DOSE CUPS PO PRN (15:09)
[2020-06-14] MEDS ORDERED: LOPERAMIDE HCL 2 MG CAPSULE PO PRN (15:09)
[2020-06-14] MEDS ORDERED: P-EPHED 60MG/TRIPROLIDI 2.5MG TABLET PO PRN (15:09)
[2020-06-14] MEDS ORDERED: MAGNESIUM CITRATE 300 ML BOTTLE PO PRN (15:09)
[2020-06-14] MEDS ORDERED: IBUPROFEN 400 MG TABLET (FP) PO PRN (15:09)
[2020-06-14] MEDS: THIAMINE HCL 100 MG TABLET (FP) PO SCH (21:12)
[2020-06-14] MEDS: hydrOXYzine PAMOATE 25 MG CAPSULE (FP) PO PRN (21:12)
[2020-06-14] MEDS: MELATONIN 5 MG TABLETS PO SCH (21:12)
[2020-06-14] MEDS: QUEtiapine FUMARATE 50 MG TABLET PO SCH (21:13)
[2020-06-14] MEDS: traZODone HCL 100 MG TABLET (FP) PO SCH (21:13)
[2020-06-15] MEDS ORDERED: ALBUTEROL SO4 2.5/IPRATROPIUM 0.5 INH SOL 3 ML VIAL.NEB. NEB ONE (00:44)
--- NOTE | 2020-06-15 01:22 | PN ---
[facility] Progress Note Note: Patient complains of shortness of breath and wheezing. Saturation 85% Vital Signs Temperature 98.2 F 06/14/20 15:31 Pulse Rate 64 06/14/20 15:31 Respiratory Rate 16 06/14/20 15:31 Blood Pressure 103/66 06/14/20 15:31 O2 Sat by Pulse Oximetry (%) 96 06/14/20 19:28 Action: Albuterol 2.55 / Ipatropium 1.5% (Duopneb) nebulizer administered
[2020-06-15] MEDS ORDERED: METHADONE HCL 10 MG TABLET PO SCH (06:00)
[2020-06-15] MEDS ORDERED: METHADONE HCL 40 MG DISPERSABLE TABLET ONE (06:21)
[2020-06-15] MEDS ORDERED: METHADONE HCL 10 MG TABLET ONE (06:21)
[2020-06-15] MEDS: METHADONE 40 MG, METHADONE 10 MG PO SCH (06:28)
[2020-06-15] MEDS: ALBUTEROL SO4 2.5/IPRATROPIUM 0.5 INH SOL 3 ML VIAL.NEB. NEB PRN ×2 (07:11→12:49)
[2020-06-15] MEDS ORDERED: PT OWN MED DRAWER 7, Y5N ONE ×2 (09:10→16:44)
[2020-06-15] MEDS: NICOTINE 21 MG/24 HOURS TOPICAL PATCH TD SCH (09:11)
[2020-06-15] MEDS: PRENATAL VITAMINS W/ FOLIC ACID TABLET (FP) PO SCH (09:11)
[2020-06-15] MEDS: QUEtiapine FUMARATE 50 MG TABLET PO SCH ×2 (09:11→21:12)
[2020-06-15] MEDS: hydrOXYzine PAMOATE 25 MG CAPSULE (FP) PO PRN ×2 (09:12→21:12)
[2020-06-15] MEDS ORDERED: predniSONE 10 MG TABLET (UD) PO ONE (10:00)
[2020-06-15] MEDS: ACETAMINOPHEN 325 MG TABLET (FP) PO PRN (12:32)
--- NOTE | 2020-06-15 12:54 | PN ---
[facility] Progress Note (SOAP) Subjective: Patient c/o back pain and has a low grade fever. PMHx of asthma, O2 sats were low yesterday, he was give a stat nebulizer treatment and place on 3 liters of oxygen until his sats increased. He is on a Predisone taper. Objective: 06/15/20 12:51 Vital Signs Period Temp Pulse Resp BP Sys/Wilson Pulse Ox Last 24 Hr 98.2 F-99.4 F 64-90 16-18 103-150/66-99 90-96 P/E: General: lethargic, but arousable HEENTM: normicephalic, nares patent Neck: supple RESP: scattered wheezes throughout all lung murphy, decreased breath sounds at base, bilaterally CARD: s1 s2 audible ABD: +BS Assessment: Asthma 06/15/20 12:52 Plan: Requested that RN give patient a nebulizer treatment and tylenol Started Robaxin for back pain Instructed patient to increase fluids
[2020-06-15] MEDS: METHOCARBAMOL 500 MG TABLET PO SCH ×3 (13:12→21:12)
[2020-06-15] MEDS: MELATONIN 5 MG TABLETS PO SCH (21:12)
[2020-06-15] MEDS: traZODone HCL 100 MG TABLET (FP) PO SCH (21:12)
[2020-06-15] MEDS: THIAMINE HCL 100 MG TABLET (FP) PO SCH (21:12)
[2020-06-16] MEDS ORDERED: METHADONE HCL 40 MG DISPERSABLE TABLET ONE (05:15)
[2020-06-16] MEDS ORDERED: METHADONE HCL 10 MG TABLET ONE (05:15)
[2020-06-16] MEDS: METHADONE 40 MG, METHADONE 10 MG PO SCH (06:51)
[2020-06-16] MEDS: ALBUTEROL SO4 HFA INHALER IH PRN (07:02)
[2020-06-16] MEDS: NICOTINE 21 MG/24 HOURS TOPICAL PATCH TD SCH (09:55)
[2020-06-16] MEDS: QUEtiapine FUMARATE 50 MG TABLET PO SCH ×2 (09:56→21:30)
[2020-06-16] MEDS: PRENATAL VITAMINS W/ FOLIC ACID TABLET (FP) PO SCH (09:56)
[2020-06-16] MEDS: METHOCARBAMOL 500 MG TABLET PO SCH ×4 (09:56→22:13)
[2020-06-16] MEDS ORDERED: PT OWN MED DRAWER 7, Y5N ONE (09:57)
[2020-06-16] MEDS ORDERED: predniSONE 20 MG TABLET (UD) PO ONE (10:00)
[2020-06-16] MEDS: MELATONIN 5 MG TABLETS PO SCH (21:30)
[2020-06-16] MEDS: traZODone HCL 100 MG TABLET (FP) PO SCH (21:30)
[2020-06-16] MEDS: THIAMINE HCL 100 MG TABLET (FP) PO SCH (21:31)
[2020-06-17] MEDS ORDERED: METHADONE HCL 40 MG DISPERSABLE TABLET ONE (03:19)
[2020-06-17] MEDS ORDERED: METHADONE HCL 10 MG TABLET ONE (03:19)
[2020-06-17] MEDS: METHADONE 40 MG, METHADONE 10 MG PO SCH (06:11)
[2020-06-17] MEDS: METHOCARBAMOL 500 MG TABLET PO SCH ×4 (09:41→21:16)
[2020-06-17] MEDS: QUEtiapine FUMARATE 50 MG TABLET PO SCH ×2 (09:41→21:16)
[2020-06-17] MEDS: PRENATAL VITAMINS W/ FOLIC ACID TABLET (FP) PO SCH (09:41)
[2020-06-17] MEDS ORDERED: PT OWN MED DRAWER 7, Y5N ONE (09:42)
[2020-06-17] MEDS: hydrOXYzine PAMOATE 25 MG CAPSULE (FP) PO PRN ×2 (09:43→21:16)
[2020-06-17] MEDS: NICOTINE 21 MG/24 HOURS TOPICAL PATCH TD SCH (09:44)
[2020-06-17] MEDS ORDERED: predniSONE 10 MG TABLET (UD) PO ONE (10:00)
[2020-06-17] MEDS: ALBUTEROL SO4 HFA INHALER IH PRN ×2 (14:19→21:17)
[2020-06-17] MEDS: MELATONIN 5 MG TABLETS PO SCH (21:16)
[2020-06-17] MEDS: THIAMINE HCL 100 MG TABLET (FP) PO SCH (21:16)
[2020-06-17] MEDS: traZODone HCL 100 MG TABLET (FP) PO SCH (21:16)
[2020-06-18] MEDS ORDERED: METHADONE HCL 40 MG DISPERSABLE TABLET ONE (03:09)
[2020-06-18] MEDS ORDERED: METHADONE HCL 10 MG TABLET ONE (03:09)
[2020-06-18] MEDS: METHADONE 40 MG, METHADONE 10 MG PO SCH (06:40)
[2020-06-18] MEDS ORDERED: PT OWN MED DRAWER 7, Y5N ONE (08:23)
[2020-06-18] MEDS: NICOTINE 21 MG/24 HOURS TOPICAL PATCH TD SCH (09:46)
[2020-06-18] MEDS: QUEtiapine FUMARATE 50 MG TABLET PO SCH ×2 (09:46→21:32)
[2020-06-18] MEDS: METHOCARBAMOL 500 MG TABLET PO SCH ×4 (09:46→21:32)
[2020-06-18] MEDS: PRENATAL VITAMINS W/ FOLIC ACID TABLET (FP) PO SCH (09:46)
[2020-06-18] MEDS ORDERED: predniSONE 5 MG TABLET (UD) PO ONE (10:00)
[2020-06-18] MEDS: traZODone HCL 100 MG TABLET (FP) PO SCH (21:32)
[2020-06-18] MEDS: MELATONIN 5 MG TABLETS PO SCH (21:33)
[2020-06-18] MEDS: THIAMINE HCL 100 MG TABLET (FP) PO SCH (21:33)
[2020-06-18] MEDS: hydrOXYzine PAMOATE 25 MG CAPSULE (FP) PO PRN (21:35)
[2020-06-19] MEDS ORDERED: METHADONE HCL 10 MG TABLET ONE (02:48)
[2020-06-19] MEDS ORDERED: METHADONE HCL 40 MG DISPERSABLE TABLET ONE (02:48)
[2020-06-19] MEDS: METHADONE 40 MG, METHADONE 10 MG PO SCH (06:09)
[2020-06-19] MEDS: METHOCARBAMOL 500 MG TABLET PO SCH ×4 (09:22→22:28)
[2020-06-19] MEDS: QUEtiapine FUMARATE 50 MG TABLET PO SCH ×2 (09:22→21:21)
[2020-06-19] MEDS: PRENATAL VITAMINS W/ FOLIC ACID TABLET (FP) PO SCH (09:22)
[2020-06-19] MEDS: NICOTINE 21 MG/24 HOURS TOPICAL PATCH TD SCH (09:22)
[2020-06-19] MEDS: ALBUTEROL SO4 HFA INHALER IH PRN (09:23)
--- NOTE | 2020-06-19 16:30 | CONSULT ---
[facility] Psychiatric Consult - Data Date of interview: 06/19/20 Admission source: Transfer from [address] [place] [address]. Identifying data: Detoxification completed at [address] [place] [address]. Patient is now admitted to [address] for continuity of care (rehabilitation treatment) addressing JOVANY issues (alcohol, heroin, benzodiazepine/xanax, nicotine) co- morbid with mood disorder + bereavement (lost in February 2020). Patient is a 45 y/o [place] male, , no dependents, unemployed, homeless and supported on Public Assistance. Substance Abuse History: Revisited with patient in this session. JOVANY profile as follows : Smoking history: Current every day smoker. Have you smoked in the past 12 months: Yes. Aproximately how many cigarettes per day: 20. Hx Chewing Tobacco Use: No. Initiated information on smoking cessation: Yes. 'Breaking Loose' booklet given: 06/09/20. - Substance & Tx. History. Hx Alcohol Use: Yes. Hx Substance Use: Yes. Substance Use Type: Alcohol, Heroin, Prescribed (Methadone). Hx Substance Use Treatment: Yes (formerly [facility]). - Substances abused. Alcohol. Substance route: Oral. Frequency: Daily. Amount used: liquor- 3 pints Vodka, beer- 1 six pk. Age of first use: 21. Date of last use: 06/09/20. Heroin. Substance route: Inhalation. Frequency: Daily. Amount used: 10 bags. Age of first use: 22. Date of last use: 06/09/20. History of multiple JOVANY treatment failures. Medical History: Medical profile is remarkable for bronchial asthma + antecedent of surgery (fracture of jaw) in 1997. Noted report of allergy to ASA and penicillins. Psychiatric History: No changes in longitudinal history since my examination of 06/10/[address] [place] [address]. History remains as follows : distant history (seven years ago) of psychiatric hospitalization (3 day retention) at [facility] " because of a misunderstanding." Mr Huerta explains that he was brought to the hospital while " high on drugs " and kept because of suicidal threats. Currently the patient is on methadone maintenance (50 mg/day) at [facility]. No history of suicide attempts. Physical/Sexual Abuse/Trauma History: Recent trauma : of (pneumonia). Additional Comment: Urine drug screen results: FEN-Fentanyl, MOP-Opiates, MTD- Methadone. Noted on admission on 06/10/20 at [facility] [address]. Mental Status Exam - Mental Status Exam Alert and Oriented to: Time, Place, Person Cognitive Function: Good Patient Appearance: Well Groomed Mood: Withdrawn, Hopeful Affect: Appropriate, Mood Congruent, Normal Range Patient Behavior: Appropriate, Cooperative Speech Pattern: Clear, Appropriate Voice Loudness: Normal Thought Process: Intact, Goal Oriented Thought Disorder: Not Present Hallucinations: Denies Suicidal Ideation: Denies Homicidal Ideation: Denies Insight/Judgement: Fair Sleep: Poorly, Difficulty falling asleep Appetite: Good Gait/Station: Normal Psychiatric Findings - Problem List (Carlyle 1, 2,3) (1) Alcohol use disorder Current Visit: Yes Status: Chronic (2) Opioid dependence on agonist therapy Current Visit: Yes Status: Chronic Comment: . (3) Nicotine dependence Current Visit: Yes Status: Chronic Qualifiers: Nicotine product type: cigarettes Substance use status: uncomplicated Qualified Code(s): F17.210 - Nicotine dependence, cigarettes, uncomplicated Comment: . (4) Substance induced mood disorder Current Visit: Yes Status: Chronic Comment: . (5) Bereavement Current Visit: Yes Status: Acute Comment: two months ago, as per self-report. (6) Insomnia Current Visit: Yes Status: Chronic Comment: . - Initial Treatment Plan Initial Treatment Plan: Empathy and support. Counseling. Psychoeducation. Sleep hygiene. Group/individual therapy. Trazodone is now raised to 150 mg po hs (from 100 mg) with patient's informed consent (aware of risk of priapism). Observation. Psychiatry-Liaison will follow as needed.
[2020-06-19] MEDS: THIAMINE HCL 100 MG TABLET (FP) PO SCH (21:21)
[2020-06-19] MEDS: MELATONIN 5 MG TABLETS PO SCH (21:21)
[2020-06-19] MEDS: hydrOXYzine PAMOATE 25 MG CAPSULE (FP) PO PRN (21:23)
[2020-06-19] MEDS ORDERED: traZODone HCL 100 MG TABLET (FP) PO SCH (22:00)
[2020-06-19] MEDS: traZODone HCL 50 MG TABLET (FP) PO SCH (22:28)
[2020-06-20] MEDS ORDERED: METHADONE HCL 40 MG DISPERSABLE TABLET ONE (05:47)
[2020-06-20] MEDS ORDERED: METHADONE HCL 10 MG TABLET ONE (05:47)
[2020-06-20] MEDS: METHADONE 40 MG, METHADONE 10 MG PO SCH (06:24)
[2020-06-20] MEDS: PRENATAL VITAMINS W/ FOLIC ACID TABLET (FP) PO SCH (09:56)
[2020-06-20] MEDS: QUEtiapine FUMARATE 50 MG TABLET PO SCH ×2 (09:56→21:24)
[2020-06-20] MEDS: METHOCARBAMOL 500 MG TABLET PO SCH ×3 (09:56→21:25)
[2020-06-20] MEDS: NICOTINE 21 MG/24 HOURS TOPICAL PATCH TD SCH (09:56)
[2020-06-20] MEDS: ALBUTEROL SO4 HFA INHALER IH PRN (19:58)
[2020-06-20] MEDS: hydrOXYzine PAMOATE 25 MG CAPSULE (FP) PO PRN (21:24)
[2020-06-20] MEDS: traZODone HCL 50 MG TABLET (FP) PO SCH (21:24)
[2020-06-20] MEDS: THIAMINE HCL 100 MG TABLET (FP) PO SCH (21:24)
[2020-06-20] MEDS: MELATONIN 5 MG TABLETS PO SCH (21:24)
[2020-06-21] MEDS ORDERED: METHADONE HCL 10 MG TABLET ONE (06:23)
[2020-06-21] MEDS ORDERED: METHADONE HCL 40 MG DISPERSABLE TABLET ONE (06:24)
[2020-06-21] MEDS: METHADONE 40 MG, METHADONE 10 MG PO SCH (06:26)
[2020-06-21] MEDS: hydrOXYzine PAMOATE 25 MG CAPSULE (FP) PO PRN ×2 (06:26→21:22)
[2020-06-21] MEDS: METHOCARBAMOL 500 MG TABLET PO SCH ×4 (10:29→21:22)
[2020-06-21] MEDS: NICOTINE 21 MG/24 HOURS TOPICAL PATCH TD SCH (10:29)
[2020-06-21] MEDS: QUEtiapine FUMARATE 50 MG TABLET PO SCH ×2 (10:29→21:23)
[2020-06-21] MEDS: PRENATAL VITAMINS W/ FOLIC ACID TABLET (FP) PO SCH (10:29)
[2020-06-21] MEDS: traZODone HCL 50 MG TABLET (FP) PO SCH (21:22)
[2020-06-21] MEDS: THIAMINE HCL 100 MG TABLET (FP) PO SCH (21:22)
[2020-06-21] MEDS: MELATONIN 5 MG TABLETS PO SCH (21:22)
[2020-06-22] MEDS ORDERED: METHADONE HCL 10 MG TABLET ONE (04:26)
[2020-06-22] MEDS ORDERED: METHADONE HCL 40 MG DISPERSABLE TABLET ONE (04:27)
[2020-06-22] MEDS: METHADONE 40 MG, METHADONE 10 MG PO SCH (06:24)
--- NOTE | 2020-06-22 10:20 | PN ---
[facility] Progress Note Note: Pt reports tiredness and chills stating "Im Anemic and used to take B-12. I took it last one year ago because i stopped going to my doctor as i was using". Pt is in a Methadone program and reports he has a doctor at the program. Review of labs in detox Hgb grossly normal-11.5 Vital Signs - 24 hr 06/21/20 06/21/20 06/22/20 14:28 20:10 07:00 Temperature 97.3 F L Pulse Rate 54 L Respiratory 16 Rate Blood Pressure 104/61 O2 Sat by Pulse 95 97 96 Oximetry (%) Alert o x 3 nad oob ambulating with steady gait and socializing with peers S/p detox [facility] Hx of Anemia(Pt's verbal report but denied on admission) Pt requesting his lab result to show his doctor when he leaves D/w pt will review labs and start feosol if needed. Ensure 1 can po tid follow up with primary care after rehab
[2020-06-22] MEDS: METHOCARBAMOL 500 MG TABLET PO SCH ×4 (10:52→21:22)
[2020-06-22] MEDS: PRENATAL VITAMINS W/ FOLIC ACID TABLET (FP) PO SCH (10:52)
[2020-06-22] MEDS: NICOTINE 21 MG/24 HOURS TOPICAL PATCH TD SCH (10:52)
[2020-06-22] MEDS: hydrOXYzine PAMOATE 25 MG CAPSULE (FP) PO PRN ×2 (10:52→21:25)
[2020-06-22] MEDS: FERROUS SO4 325 MG TABLET (FP) PO SCH (10:52)
[2020-06-22] MEDS: QUEtiapine FUMARATE 50 MG TABLET PO SCH ×2 (10:52→21:23)
[2020-06-22] MEDS: traZODone HCL 50 MG TABLET (FP) PO SCH (21:21)
[2020-06-22] MEDS: MELATONIN 5 MG TABLETS PO SCH (21:22)
[2020-06-22] MEDS: THIAMINE HCL 100 MG TABLET (FP) PO SCH (21:23)
[2020-06-23] MEDS ORDERED: METHADONE HCL 10 MG TABLET ONE (04:22)
[2020-06-23] MEDS ORDERED: METHADONE HCL 40 MG DISPERSABLE TABLET ONE (04:22)
[2020-06-23] MEDS: METHADONE 40 MG, METHADONE 10 MG PO SCH (06:36)
[2020-06-23] MEDS: QUEtiapine FUMARATE 50 MG TABLET PO SCH ×2 (10:35→21:41)
[2020-06-23] MEDS: FERROUS SO4 325 MG TABLET (FP) PO SCH (10:35)
[2020-06-23] MEDS: PRENATAL VITAMINS W/ FOLIC ACID TABLET (FP) PO SCH (10:35)
[2020-06-23] MEDS: METHOCARBAMOL 500 MG TABLET PO SCH ×4 (10:35→21:41)
[2020-06-23] MEDS: NICOTINE 21 MG/24 HOURS TOPICAL PATCH TD SCH (10:36)
[2020-06-23] MEDS: MELATONIN 5 MG TABLETS PO SCH (21:39)
[2020-06-23] MEDS: traZODone HCL 50 MG TABLET (FP) PO SCH (21:39)
[2020-06-23] MEDS: THIAMINE HCL 100 MG TABLET (FP) PO SCH (21:39)
[2020-06-23] MEDS: hydrOXYzine PAMOATE 25 MG CAPSULE (FP) PO PRN (21:42)
[2020-06-24] MEDS ORDERED: METHADONE HCL 10 MG TABLET ONE (03:57)
[2020-06-24] MEDS ORDERED: METHADONE HCL 40 MG DISPERSABLE TABLET ONE (03:57)
[2020-06-24] MEDS: METHADONE 40 MG, METHADONE 10 MG PO SCH (06:37)
[2020-06-24] MEDS: METHOCARBAMOL 500 MG TABLET PO SCH ×4 (10:14→21:24)
[2020-06-24] MEDS: PRENATAL VITAMINS W/ FOLIC ACID TABLET (FP) PO SCH (10:14)
[2020-06-24] MEDS: NICOTINE 21 MG/24 HOURS TOPICAL PATCH TD SCH (10:14)
[2020-06-24] MEDS: QUEtiapine FUMARATE 50 MG TABLET PO SCH ×2 (10:14→21:24)
[2020-06-24] MEDS: FERROUS SO4 325 MG TABLET (FP) PO SCH (10:14)
[2020-06-24] MEDS: ALBUTEROL SO4 HFA INHALER IH PRN ×2 (14:29→21:23)
[2020-06-24] MEDS: MAG HYDROX/AL HYDROX/SIMETH 30 ML UNIT-DOSE CUP PO PRN (17:23)
[2020-06-24] MEDS: ACETAMINOPHEN 325 MG TABLET (FP) PO PRN (21:23)
[2020-06-24] MEDS: traZODone HCL 50 MG TABLET (FP) PO SCH (21:24)
[2020-06-24] MEDS: THIAMINE HCL 100 MG TABLET (FP) PO SCH (21:24)
[2020-06-24] MEDS: MELATONIN 5 MG TABLETS PO SCH (21:24)
[2020-06-24] MEDS: hydrOXYzine PAMOATE 25 MG CAPSULE (FP) PO PRN (21:24)
[2020-06-25] MEDS ORDERED: METHADONE HCL 10 MG TABLET ONE (03:56)
[2020-06-25] MEDS ORDERED: METHADONE HCL 40 MG DISPERSABLE TABLET ONE (03:56)
[2020-06-25] MEDS: METHADONE 40 MG, METHADONE 10 MG PO SCH (06:46)
[2020-06-25] MEDS: ALBUTEROL SO4 HFA INHALER IH PRN (06:46)
[2020-06-25] MEDS: FERROUS SO4 325 MG TABLET (FP) PO SCH (10:17)
[2020-06-25] MEDS: METHOCARBAMOL 500 MG TABLET PO SCH ×4 (10:17→21:37)
[2020-06-25] MEDS: PRENATAL VITAMINS W/ FOLIC ACID TABLET (FP) PO SCH (10:17)
[2020-06-25] MEDS: QUEtiapine FUMARATE 50 MG TABLET PO SCH ×2 (10:17→21:37)
[2020-06-25] MEDS: NICOTINE 21 MG/24 HOURS TOPICAL PATCH TD SCH (10:18)
[2020-06-25] MEDS: ACETAMINOPHEN 325 MG TABLET (FP) PO PRN (10:18)
[2020-06-25] MEDS: hydrOXYzine PAMOATE 25 MG CAPSULE (FP) PO PRN (21:37)
[2020-06-25] MEDS: MELATONIN 5 MG TABLETS PO SCH (21:37)
[2020-06-25] MEDS: THIAMINE HCL 100 MG TABLET (FP) PO SCH (21:37)
[2020-06-25] MEDS: traZODone HCL 50 MG TABLET (FP) PO SCH (21:37)
[2020-06-26] MEDS ORDERED: METHADONE HCL 40 MG DISPERSABLE TABLET ONE (04:54)
[2020-06-26] MEDS ORDERED: METHADONE HCL 10 MG TABLET ONE (04:54)
[2020-06-26] MEDS: METHADONE 40 MG, METHADONE 10 MG PO SCH (06:26)
[2020-06-26] MEDS: QUEtiapine FUMARATE 50 MG TABLET PO SCH ×2 (10:29→21:45)
[2020-06-26] MEDS: NICOTINE 21 MG/24 HOURS TOPICAL PATCH TD SCH (10:29)
[2020-06-26] MEDS: FERROUS SO4 325 MG TABLET (FP) PO SCH (10:29)
[2020-06-26] MEDS: PRENATAL VITAMINS W/ FOLIC ACID TABLET (FP) PO SCH (10:29)
[2020-06-26] MEDS: METHOCARBAMOL 500 MG TABLET PO SCH ×4 (10:29→21:45)
[2020-06-26] MEDS: ALBUTEROL SO4 HFA INHALER IH PRN (21:44)
[2020-06-26] MEDS: traZODone HCL 50 MG TABLET (FP) PO SCH (21:45)
[2020-06-26] MEDS: THIAMINE HCL 100 MG TABLET (FP) PO SCH (21:45)
[2020-06-26] MEDS: MELATONIN 5 MG TABLETS PO SCH (21:45)
[2020-06-26] MEDS: hydrOXYzine PAMOATE 25 MG CAPSULE (FP) PO PRN (21:46)
[2020-06-27] MEDS ORDERED: METHADONE HCL 10 MG TABLET ONE (07:00)
[2020-06-27] MEDS: METHADONE 40 MG, METHADONE 10 MG PO SCH (07:00)
[2020-06-27] MEDS ORDERED: METHADONE HCL 40 MG DISPERSABLE TABLET ONE (07:00)
[2020-06-27] MEDS: METHOCARBAMOL 500 MG TABLET PO SCH ×4 (10:41→21:54)
[2020-06-27] MEDS: FERROUS SO4 325 MG TABLET (FP) PO SCH (10:41)
[2020-06-27] MEDS: NICOTINE 21 MG/24 HOURS TOPICAL PATCH TD SCH (10:41)
[2020-06-27] MEDS: PRENATAL VITAMINS W/ FOLIC ACID TABLET (FP) PO SCH (10:41)
[2020-06-27] MEDS: QUEtiapine FUMARATE 50 MG TABLET PO SCH ×2 (10:42→21:54)
--- NOTE | 2020-06-27 14:34 | PN ---
[facility] Progress Note Note: Patient is scheduled for discharge tomorrow. Script for 30 days supply of Trazdone 150 mg/hs will be electronically transmitted to [facility] [place] [address]
[2020-06-27] MEDS: ALBUTEROL SO4 HFA INHALER IH PRN (21:52)
[2020-06-27] MEDS: MAG HYDROX/AL HYDROX/SIMETH 30 ML UNIT-DOSE CUP PO PRN (21:53)
[2020-06-27] MEDS: MELATONIN 5 MG TABLETS PO SCH (21:54)
[2020-06-27] MEDS: traZODone HCL 50 MG TABLET (FP) PO SCH (21:54)
[2020-06-27] MEDS: THIAMINE HCL 100 MG TABLET (FP) PO SCH (21:55)
[2020-06-28] MEDS ORDERED: METHADONE HCL 40 MG DISPERSABLE TABLET ONE (03:47)
[2020-06-28] MEDS ORDERED: METHADONE HCL 10 MG TABLET ONE (03:47)
[2020-06-28] MEDS: METHADONE 40 MG, METHADONE 10 MG PO SCH (06:38)
[2020-06-28 07:17] VITALS: BP 111/75; PULSE 63; TEMP 97.7
[2020-06-28] MEDS: QUEtiapine FUMARATE 50 MG TABLET PO SCH (09:17)
[2020-06-28] MEDS: FERROUS SO4 325 MG TABLET (FP) PO SCH (09:17)
[2020-06-28] MEDS: PRENATAL VITAMINS W/ FOLIC ACID TABLET (FP) PO SCH (09:17)
[2020-06-28] MEDS: METHOCARBAMOL 500 MG TABLET PO SCH (09:17)
[2020-06-28] MEDS: NICOTINE 21 MG/24 HOURS TOPICAL PATCH TD SCH (09:18)
--- NOTE | 2020-06-28 09:45 | DS ---
[facility] Rehab Discharge Summary - [facility] Rehab Discharge Summary Admission Date: 06/14/20 Discharge Date: 06/28/20 - History Present History: Alcohol dependence, MMTP Pertinent Past History: Asthma Anemia(not on med) - Discharge Physical Exam Vital Signs: Vital Signs Temperature 97.7 F 06/28/20 06:36 Pulse Rate 63 06/28/20 06:36 Respiratory Rate 18 06/28/20 06:36 Blood Pressure 111/75 06/28/20 06:36 O2 Sat by Pulse Oximetry (%) 96 06/28/20 06:36 Alert o x 3 nad oob ambulating with steady gait cardiac:s1 s2, rrr lungs:ctab, no resp difficulty extremities:no edema;skin intact; Active ROM all ext. Pertinent Admission Physical Exam Findings: Laboratory Tests 06/15/20 08:05 HIV Ag/Ab Combo Qual Negative - Treatment Discharge Condition: Discharge condition good Hospital Course: Pt completed detox on and referred to rehab for aftercare. Pt completed rehab today and has been referred to aftercare treatment and to follow up with his MMTP clinic at [facility].. Pt accepted aftercare tx at [facility] aftercare program. - Medication Discharge Medications: Ambulatory Orders Albuterol 2.5/Ipratropium 0.5 [Duoneb -] 1 amp NEB Q6H PRN amp 06/14/20 Methadone [Dolophine -] 50 mg DAILY 06/14/20 Nicotine Patch [Nicoderm Patch -] 21 mg TD DAILY patch 06/14/20 Quetiapine Fumarate [Seroquel -] 50 mg PO BID tablet 06/14/20 traZODone HCL [Desyrel -] 100 mg PO HS tablet 06/14/20 traZODone HCL [Trazodone HCl] 100 mg PO HS #30 tablet 06/27/20 - Medication-Assisted Treatment (MAT) Medication-Assisted Treatment (MAT): No - Discharge Instructions Diet, activity, other medical instructions: Diet:Regular Activity: oob ad kimberly Other medical instructions:follow up with [facility] aftercare and medical management. - Diagnosis (1) Alcohol use disorder Current Visit: Yes Status: Chronic (2) Nicotine dependence Current Visit: Yes Status: Chronic Qualifiers: Nicotine product type: cigarettes Substance use status: uncomplicated Qualified Code(s): F17.210 - Nicotine dependence, cigarettes, uncomplicated (3) Asthma Current Visit: Yes Status: Chronic Qualifiers: Asthma severity: unspecified severity Asthma persistence: unspecified Asthma complication type: uncomplicated Qualified Code(s): J45.909 - Unspecified asthma, uncomplicated (4) Methadone maintenance therapy patient Current Visit: Yes Status: Chronic (5) Hx of iron deficiency anemia Current Visit: Yes Status: Acute - Follow-up Referral Minutes to complete discharge: 25 - AMA Did Patient Leave Against Medical Advice: No
== END 2020-06-28 09:25 | disposition home or self-care (01) | DRG 772 ==
LOC: YASAS 13:48 → Y3E 13:49 → Y5N 06-20 14:31
PROVIDERS: ADMIT Allergy & Immunology; ATTEND Allergy & Immunology
PROC: HZ42ZZZ Group Counseling for Substance Abuse Treatment, Cognitive-Behavioral (ICD-10-PCS; principal; 2020-06-14)
DX: F10.20 Alcohol dependence, uncomplicated (principal); F11.20 Opioid dependence, uncomplicated; F17.210 Nicotine dependence, cigarettes, uncomplicated; F19.24 Other psychoactive substance dependence with psychoactive substance-induced mood disorder; F39 Unspecified mood [affective] disorder; J45.909 Unspecified asthma, uncomplicated; D50.9 Iron deficiency anemia, unspecified; G47.00 Insomnia, unspecified; Z63.4 Disappearance and death of family member; Z88.0 Allergy status to penicillin; Z88.6 Allergy status to analgesic agent; Z91.013 Allergy to seafood; Z56.0 Unemployment, unspecified; Z59.0 Homelessness
CPT/HCPCS: 36415; 87389; 94640

== ENCOUNTER 2021-04-18 11:25 | Inpatient (IN) | payer OTHER ==
[2021-04-18] MEDS ORDERED: ACETAMINOPHEN 325 MG TABLET (FP) PO PRN ×2 (12:59)
[2021-04-18] MEDS ORDERED: MAGNESIUM HYDROX 2400MG/30ML ORAL SUSPENSION 30 ML CUP PO PRN (12:59)
[2021-04-18] MEDS ORDERED: MAG HYDROX/AL HYDROX/SIMETH 30 ML UNIT-DOSE CUP PO PRN (12:59)
[2021-04-18] MEDS ORDERED: IBUPROFEN 400 MG TABLET (FP) PO PRN (12:59)
[2021-04-18] MEDS ORDERED: MAGNESIUM CITRATE 300 ML BOTTLE PO PRN (12:59)
[2021-04-18] MEDS ORDERED: LORazepam 1 MG TABLET PO PRN (12:59)
[2021-04-18] MEDS ORDERED: BISMUTH SUBSALICYLATE 524 MG/30 ML PO PRN (12:59)
[2021-04-18] MEDS ORDERED: NICOTINE POLACRILEX 2 MG GUM BUC PRN (12:59)
[2021-04-18] MEDS ORDERED: MENTHOL/PHENOL 1 EACH UD MM PRN (12:59)
[2021-04-18 13:12] VITALS: BMI 24.2
[2021-04-18] MEDS ORDERED: ALBUTEROL SO4 HFA INHALER IH PRN (13:17)
[2021-04-18] MEDS: hydrOXYzine PAMOATE 25 MG CAPSULE (FP) PO SCH ×3 (14:00→22:06)
[2021-04-18] MEDS: NICOTINE 7 MG/24 HOURS TOPICAL PATCH TD SCH (14:01)
[2021-04-18 15:44] LABS: HEMATOCRIT 31.2 % (35.4-49); HEMOGLOBIN 9.9 GM/dL (11.7-16.9); MCH 23.5 pg (25.7-33.7); MCHC 31.8 g/dl (32.0-35.9); MEAN CELL VOLUME 73.9 fl (80-96); MEAN PLT VOLUME 7.8 fl (7.5-11.1); PLATELET COUNT 362 K/MM3 (134-434); RBC 4.22 M/mm3 (4.00-5.60); RDW 17.2 % (11.9-15.9); WHITE BLOOD COUNT 6.6 K/mm3 (4.0-10.0)
[2021-04-18 16:07] LABS: CALCIUM 9.1 mg/dL (8.5-10.1)
[2021-04-18 16:08] LABS: ALBUMIN 3.7 g/dl (3.4-5.0); BLOOD UREA NITROGEN 8.3 mg/dL (7-18)
[2021-04-18 16:10] LABS: BILIRUBIN,TOTAL 0.3 mg/dL (0.2-1); TOT PROT 7.1 g/dl (6.4-8.2)
[2021-04-18] MEDS: LORazepam 2 MG TABLET PO SCH ×2 (18:00→22:06)
[2021-04-18] MEDS: THIAMINE HCL 100 MG TABLET (FP) PO SCH (22:06)
[2021-04-18] MEDS: MELATONIN 5 MG TABLETS PO SCH (22:06)
[2021-04-19] MEDS: hydrOXYzine PAMOATE 25 MG CAPSULE (FP) PO SCH (05:31)
[2021-04-19] MEDS: LORazepam 2 MG TABLET PO SCH ×4 (05:31→22:51)
[2021-04-19] MEDS: METHADONE HCL 40 MG DISPERSABLE TABLET PO SCH (05:31)
[2021-04-19] MEDS ORDERED: hydrOXYzine PAMOATE 25 MG CAPSULE (FP) PO PRN (09:01)
[2021-04-19] MEDS: NICOTINE 7 MG/24 HOURS TOPICAL PATCH TD SCH (10:01)
[2021-04-19] MEDS: PRENATAL VITAMINS W/ FOLIC ACID TABLET (FP) PO SCH (10:01)
[2021-04-19] MEDS: FERROUS SO4 325 MG TABLET (FP) PO SCH ×2 (13:57→17:25)
[2021-04-19] MEDS: MELATONIN 5 MG TABLETS PO SCH (22:50)
[2021-04-19] MEDS: THIAMINE HCL 100 MG TABLET (FP) PO SCH (22:50)
[2021-04-20] MEDS: ONDANSETRON *ODT* 4 MG TABLET SL PRN ×2 (00:48→11:37)
[2021-04-20] MEDS: METHOCARBAMOL 500 MG TABLET PO PRN (08:02)
[2021-04-20] MEDS: FERROUS SO4 325 MG TABLET (FP) PO SCH ×3 (08:02→17:28)
[2021-04-20] MEDS: LORazepam 1 MG TABLET PO SCH ×4 (08:02→22:05)
[2021-04-20] MEDS: METHADONE HCL 40 MG DISPERSABLE TABLET PO SCH (08:03)
[2021-04-20] MEDS ORDERED: DICYCLOMINE HCL 10 MG CAPSULE PO PRN (09:04)
[2021-04-20] MEDS: NICOTINE 7 MG/24 HOURS TOPICAL PATCH TD SCH (10:10)
[2021-04-20] MEDS: PRENATAL VITAMINS W/ FOLIC ACID TABLET (FP) PO SCH (10:10)
[2021-04-20 10:27] LABS: HEMATOCRIT 34.5 % (35.4-49); HEMOGLOBIN 10.8 GM/dL (11.7-16.9); MCH 23.1 pg (25.7-33.7); MCHC 31.4 g/dl (32.0-35.9); MEAN CELL VOLUME 73.7 fl (80-96); MEAN PLT VOLUME 8.3 fl (7.5-11.1); PLATELET COUNT 407 K/MM3 (134-434); RBC 4.68 M/mm3 (4.00-5.60); RDW 16.8 % (11.9-15.9)
[2021-04-20] MEDS: THIAMINE HCL 100 MG TABLET (FP) PO SCH (21:29)
[2021-04-20] MEDS: MELATONIN 5 MG TABLETS PO SCH (21:29)
[2021-04-21] MEDS ORDERED: LORazepam 0.5 MG TABLET PO PRN
[2021-04-21] MEDS: METHOCARBAMOL 500 MG TABLET PO PRN (00:29)
[2021-04-21] MEDS: METHADONE HCL 40 MG DISPERSABLE TABLET PO SCH (06:02)
[2021-04-21] MEDS: LORazepam 0.5 MG TABLET PO SCH ×4 (06:03→22:08)
[2021-04-21] MEDS: FERROUS SO4 325 MG TABLET (FP) PO SCH ×3 (08:37→17:23)
[2021-04-21] MEDS: PRENATAL VITAMINS W/ FOLIC ACID TABLET (FP) PO SCH (10:37)
[2021-04-21] MEDS: NICOTINE 7 MG/24 HOURS TOPICAL PATCH TD SCH (10:39)
[2021-04-21] MEDS: MELATONIN 5 MG TABLETS PO SCH (22:08)
[2021-04-21] MEDS: THIAMINE HCL 100 MG TABLET (FP) PO SCH (22:08)
[2021-04-22] MEDS ORDERED: LORazepam 0.5 MG TABLET PO ONE (05:00)
[2021-04-22] MEDS: METHADONE HCL 40 MG DISPERSABLE TABLET PO SCH (05:33)
[2021-04-22] MEDS: FERROUS SO4 325 MG TABLET (FP) PO SCH ×2 (07:16→13:28)
[2021-04-22 09:21] VITALS: BP 137/89; PULSE 66; TEMP 98.2
[2021-04-22] MEDS: NICOTINE 7 MG/24 HOURS TOPICAL PATCH TD SCH (10:08)
[2021-04-22] MEDS: PRENATAL VITAMINS W/ FOLIC ACID TABLET (FP) PO SCH (10:08)
== END 2021-04-22 16:49 | disposition other institution (70) | DRG 773 ==
LOC: YASAS 11:25 → Y3N 13:20
PROVIDERS: ADMIT Allergy & Immunology; ATTEND Allergy & Immunology
PROC: HZ2ZZZZ Detoxification Services for Substance Abuse Treatment (ICD-10-PCS; principal; 2021-04-18)
DX: F10.230 Alcohol dependence with withdrawal, uncomplicated (principal); F11.20 Opioid dependence, uncomplicated; F13.20 Sedative, hypnotic or anxiolytic dependence, uncomplicated; F17.210 Nicotine dependence, cigarettes, uncomplicated; F19.24 Other psychoactive substance dependence with psychoactive substance-induced mood disorder; D50.9 Iron deficiency anemia, unspecified; Z63.4 Disappearance and death of family member; Z56.0 Unemployment, unspecified; Z59.0 Homelessness; Z88.0 Allergy status to penicillin; Z88.6 Allergy status to analgesic agent; Z91.013 Allergy to seafood
CPT/HCPCS: 36415; 80053; 85027; 86780; C9803; Q0162; U0003; U0005

== ENCOUNTER 2021-04-22 17:01 | Inpatient (IN) | payer OTHER ==
[2021-04-22] MEDS ORDERED: guaiFENesin 200 MG/10 ML 10 ML UNIT-DOSE CUPS PO PRN (17:32)
[2021-04-22] MEDS ORDERED: MAGNESIUM CITRATE 300 ML BOTTLE PO PRN (17:32)
[2021-04-22] MEDS ORDERED: MAGNESIUM HYDROX 2400MG/30ML ORAL SUSPENSION 30 ML CUP PO PRN (17:32)
[2021-04-22] MEDS ORDERED: MENTHOL/PHENOL 1 EACH UD MM PRN (17:32)
[2021-04-22] MEDS ORDERED: MAG HYDROX/AL HYDROX/SIMETH 30 ML UNIT-DOSE CUP PO PRN (17:32)
[2021-04-22] MEDS ORDERED: LOPERAMIDE HCL 2 MG CAPSULE PO PRN (17:32)
[2021-04-22] MEDS ORDERED: ACETAMINOPHEN 325 MG TABLET (FP) PO PRN (17:32)
[2021-04-22] MEDS ORDERED: P-EPHED 60MG/TRIPROLIDI 2.5MG TABLET PO PRN (17:32)
[2021-04-22] MEDS ORDERED: MASKS NR ONE (18:25)
[2021-04-22] MEDS: THIAMINE HCL 100 MG TABLET (FP) PO SCH (21:03)
[2021-04-22] MEDS: MELATONIN 5 MG TABLETS PO SCH (21:03)
[2021-04-22] MEDS: hydrOXYzine PAMOATE 25 MG CAPSULE (FP) PO PRN (21:03)
[2021-04-23] MEDS: METHADONE HCL 40 MG DISPERSABLE TABLET PO SCH (06:13)
[2021-04-23] MEDS: PRENATAL VITAMINS W/ FOLIC ACID TABLET (FP) PO SCH (10:37)
[2021-04-23] MEDS: THIAMINE HCL 100 MG TABLET (FP) PO SCH (21:58)
[2021-04-23] MEDS: MELATONIN 5 MG TABLETS PO SCH (21:58)
[2021-04-23] MEDS: hydrOXYzine PAMOATE 25 MG CAPSULE (FP) PO PRN (21:59)
[2021-04-24] MEDS: METHADONE HCL 40 MG DISPERSABLE TABLET PO SCH (06:10)
[2021-04-24] MEDS: NICOTINE 21 MG/24 HOURS TOPICAL PATCH TD SCH (09:42)
[2021-04-24] MEDS: PRENATAL VITAMINS W/ FOLIC ACID TABLET (FP) PO SCH (09:42)
[2021-04-24] MEDS: hydrOXYzine PAMOATE 25 MG CAPSULE (FP) PO PRN (09:43)
[2021-04-24] MEDS: MELATONIN 5 MG TABLETS PO SCH (21:12)
[2021-04-24] MEDS: THIAMINE HCL 100 MG TABLET (FP) PO SCH (21:12)
[2021-04-25] MEDS: METHADONE HCL 40 MG DISPERSABLE TABLET PO SCH (06:38)
[2021-04-25] MEDS: NICOTINE 21 MG/24 HOURS TOPICAL PATCH TD SCH (10:15)
[2021-04-25] MEDS: hydrOXYzine PAMOATE 25 MG CAPSULE (FP) PO PRN ×2 (10:15→20:59)
[2021-04-25] MEDS: PRENATAL VITAMINS W/ FOLIC ACID TABLET (FP) PO SCH (10:15)
[2021-04-25] MEDS: THIAMINE HCL 100 MG TABLET (FP) PO SCH (21:00)
[2021-04-25] MEDS: MELATONIN 5 MG TABLETS PO SCH (21:00)
[2021-04-26] MEDS: METHADONE HCL 40 MG DISPERSABLE TABLET PO SCH (06:35)
[2021-04-26] MEDS: hydrOXYzine PAMOATE 25 MG CAPSULE (FP) PO PRN ×2 (10:22→21:31)
[2021-04-26] MEDS: NICOTINE 21 MG/24 HOURS TOPICAL PATCH TD SCH (10:22)
[2021-04-26] MEDS: PRENATAL VITAMINS W/ FOLIC ACID TABLET (FP) PO SCH (10:22)
[2021-04-26] MEDS: MELATONIN 5 MG TABLETS PO SCH (21:30)
[2021-04-26] MEDS: THIAMINE HCL 100 MG TABLET (FP) PO SCH (21:30)
[2021-04-27] MEDS: METHADONE HCL 40 MG DISPERSABLE TABLET PO SCH (06:15)
[2021-04-27] MEDS: hydrOXYzine PAMOATE 25 MG CAPSULE (FP) PO PRN ×2 (10:29→21:37)
[2021-04-27] MEDS: PRENATAL VITAMINS W/ FOLIC ACID TABLET (FP) PO SCH (10:29)
[2021-04-27] MEDS: NICOTINE 21 MG/24 HOURS TOPICAL PATCH TD SCH (10:39)
[2021-04-27] MEDS: THIAMINE HCL 100 MG TABLET (FP) PO SCH (21:37)
[2021-04-27] MEDS: MELATONIN 5 MG TABLETS PO SCH (21:37)
[2021-04-28] MEDS: METHADONE HCL 40 MG DISPERSABLE TABLET PO SCH (06:30)
[2021-04-28] MEDS: PRENATAL VITAMINS W/ FOLIC ACID TABLET (FP) PO SCH (10:41)
[2021-04-28] MEDS: hydrOXYzine PAMOATE 25 MG CAPSULE (FP) PO PRN ×2 (10:41→21:45)
[2021-04-28] MEDS: NICOTINE 21 MG/24 HOURS TOPICAL PATCH TD SCH (10:42)
[2021-04-28] MEDS: THIAMINE HCL 100 MG TABLET (FP) PO SCH (21:45)
[2021-04-28] MEDS: MELATONIN 5 MG TABLETS PO SCH (21:45)
[2021-04-29] MEDS: METHADONE HCL 40 MG DISPERSABLE TABLET PO SCH (06:30)
[2021-04-29] MEDS: hydrOXYzine PAMOATE 25 MG CAPSULE (FP) PO PRN ×2 (10:18→21:01)
[2021-04-29] MEDS: PRENATAL VITAMINS W/ FOLIC ACID TABLET (FP) PO SCH (10:18)
[2021-04-29] MEDS: NICOTINE 21 MG/24 HOURS TOPICAL PATCH TD SCH (10:18)
[2021-04-29] MEDS: MELATONIN 5 MG TABLETS PO SCH (21:01)
[2021-04-29] MEDS: THIAMINE HCL 100 MG TABLET (FP) PO SCH (21:01)
[2021-04-30] MEDS ORDERED: METHADONE HCL 40 MG DISPERSABLE TABLET PO SCH (06:00)
[2021-04-30 07:24] VITALS: BP 125/74; PULSE 68; TEMP 98.1
[2021-04-30] MEDS ORDERED: NICOTINE 7 MG/24 HOURS TOPICAL PATCH TD SCH (10:00)
== END 2021-04-30 09:53 | disposition home or self-care (01) | DRG 772 ==
LOC: YASAS 17:01 → Y3W 17:02
PROVIDERS: ADMIT Allergy & Immunology; ATTEND Allergy & Immunology
PROC: HZ42ZZZ Group Counseling for Substance Abuse Treatment, Cognitive-Behavioral (ICD-10-PCS; principal; 2021-04-22)
DX: F10.20 Alcohol dependence, uncomplicated (principal); F11.20 Opioid dependence, uncomplicated; F13.20 Sedative, hypnotic or anxiolytic dependence, uncomplicated; F17.210 Nicotine dependence, cigarettes, uncomplicated; D64.9 Anemia, unspecified; J45.909 Unspecified asthma, uncomplicated; Z88.0 Allergy status to penicillin; Z88.6 Allergy status to analgesic agent; Z91.013 Allergy to seafood; Z59.0 Homelessness

== ENCOUNTER 2021-05-22 13:34 | Inpatient (IN) | payer OTHER ==
[2021-05-22 14:10] VITALS: BMI 24.2
[2021-05-22] MEDS ORDERED: NICOTINE POLACRILEX 2 MG GUM BUC PRN (15:29)
[2021-05-22] MEDS ORDERED: ACETAMINOPHEN 325 MG TABLET (FP) PO PRN ×2 (15:29)
[2021-05-22] MEDS ORDERED: MAG HYDROX/AL HYDROX/SIMETH 30 ML UNIT-DOSE CUP PO PRN (15:29)
[2021-05-22] MEDS ORDERED: MAGNESIUM HYDROX 2400MG/30ML ORAL SUSPENSION 30 ML CUP PO PRN (15:29)
[2021-05-22] MEDS ORDERED: LORazepam 1 MG TABLET PO PRN (15:29)
[2021-05-22] MEDS ORDERED: MAGNESIUM CITRATE 300 ML BOTTLE PO PRN (15:29)
[2021-05-22] MEDS ORDERED: MENTHOL/PHENOL 1 EACH UD MM PRN (15:29)
[2021-05-22] MEDS ORDERED: BISMUTH SUBSALICYLATE 524 MG/30 ML PO PRN (15:29)
[2021-05-22] MEDS ORDERED: ONDANSETRON *ODT* 4 MG TABLET SL PRN (15:29)
[2021-05-22] MEDS: LORazepam 2 MG TABLET PO SCH ×2 (16:54→22:30)
[2021-05-22] MEDS: NICOTINE 21 MG/24 HOURS TOPICAL PATCH TD SCH (16:56)
[2021-05-22] MEDS: hydrOXYzine PAMOATE 25 MG CAPSULE (FP) PO SCH ×2 (17:01→22:30)
[2021-05-22] MEDS: THIAMINE HCL 100 MG TABLET (FP) PO SCH (22:30)
[2021-05-22] MEDS: MELATONIN 5 MG TABLETS PO SCH (22:31)
[2021-05-23] MEDS: LORazepam 2 MG TABLET PO SCH ×4 (06:14→22:15)
[2021-05-23] MEDS: hydrOXYzine PAMOATE 25 MG CAPSULE (FP) PO SCH ×5 (06:14→22:15)
[2021-05-23] MEDS ORDERED: methaDONE 80 MG, methaDONE 10 MG PO ONE (08:30)
[2021-05-23] MEDS ORDERED: methaDONE HCL 10 MG TABLET ONE (08:42)
[2021-05-23] MEDS ORDERED: methaDONE HCL 40 MG DISPERSABLE TABLET ONE (08:43)
[2021-05-23] MEDS ORDERED: methaDONE HCL 10 MG TABLET PO ONE (10:00)
[2021-05-23] MEDS: NICOTINE 21 MG/24 HOURS TOPICAL PATCH TD SCH (10:06)
[2021-05-23] MEDS: PRENATAL VITAMINS W/ FOLIC ACID TABLET (FP) PO SCH (10:06)
[2021-05-23 10:33] LABS: HEMOGLOBIN 11.2 GM/dL (11.7-16.9); MCH 23.4 pg (25.7-33.7); MCHC 31.2 g/dl (32.0-35.9); MEAN CELL VOLUME 75.1 fl (80-96); MEAN PLT VOLUME 7.6 fl (7.5-11.1); PLATELET COUNT 274 10^3/uL (134-434); RBC 4.79 M/mm3 (4.00-5.60); RDW 19.7 % (11.9-15.9)
[2021-05-23 10:35] LABS: BLOOD UREA NITROGEN 4.2 mg/dL (7-18)
[2021-05-23 10:36] LABS: ALBUMIN 3.4 g/dl (3.4-5.0)
[2021-05-23 10:40] LABS: BILIRUBIN,TOTAL 0.6 mg/dL (0.2-1)
[2021-05-23 10:41] LABS: TOT PROT 6.6 g/dl (6.4-8.2)
[2021-05-23] MEDS: METHOCARBAMOL 500 MG TABLET PO PRN (13:31)
[2021-05-23] MEDS: THIAMINE HCL 100 MG TABLET (FP) PO SCH (22:15)
[2021-05-23] MEDS: MELATONIN 5 MG TABLETS PO SCH (22:17)
[2021-05-24] MEDS ORDERED: methaDONE HCL 10 MG TABLET ONE (04:05)
[2021-05-24] MEDS ORDERED: methaDONE HCL 40 MG DISPERSABLE TABLET ONE (04:05)
[2021-05-24] MEDS: LORazepam 1 MG TABLET PO SCH ×4 (05:46→22:07)
[2021-05-24] MEDS: hydrOXYzine PAMOATE 25 MG CAPSULE (FP) PO SCH ×2 (05:46→10:11)
[2021-05-24] MEDS: methaDONE 80 MG, methaDONE 10 MG PO SCH (05:46)
[2021-05-24] MEDS ORDERED: methaDONE HCL 10 MG TABLET PO SCH (06:00)
[2021-05-24] MEDS: PRENATAL VITAMINS W/ FOLIC ACID TABLET (FP) PO SCH (10:09)
[2021-05-24] MEDS: NICOTINE 21 MG/24 HOURS TOPICAL PATCH TD SCH (10:10)
[2021-05-24] MEDS: THIAMINE HCL 100 MG TABLET (FP) PO SCH (22:08)
[2021-05-24] MEDS: MELATONIN 5 MG TABLETS PO SCH (22:09)
[2021-05-25] MEDS ORDERED: LORazepam 0.5 MG TABLET PO PRN
[2021-05-25] MEDS ORDERED: methaDONE HCL 10 MG TABLET ONE (04:05)
[2021-05-25] MEDS ORDERED: methaDONE HCL 40 MG DISPERSABLE TABLET ONE (04:06)
[2021-05-25] MEDS: methaDONE 80 MG, methaDONE 10 MG PO SCH (06:09)
[2021-05-25] MEDS: LORazepam 0.5 MG TABLET PO SCH ×4 (06:09→22:16)
[2021-05-25] MEDS: METHOCARBAMOL 500 MG TABLET PO PRN (10:33)
[2021-05-25] MEDS: NICOTINE 21 MG/24 HOURS TOPICAL PATCH TD SCH (10:33)
[2021-05-25] MEDS: PRENATAL VITAMINS W/ FOLIC ACID TABLET (FP) PO SCH (10:33)
[2021-05-25] MEDS: MELATONIN 5 MG TABLETS PO SCH (22:16)
[2021-05-25] MEDS: THIAMINE HCL 100 MG TABLET (FP) PO SCH (22:16)
[2021-05-26] MEDS ORDERED: methaDONE HCL 10 MG TABLET ONE (04:07)
[2021-05-26] MEDS ORDERED: methaDONE HCL 40 MG DISPERSABLE TABLET ONE (04:07)
[2021-05-26] MEDS ORDERED: LORazepam 0.5 MG TABLET PO ONE (05:00)
[2021-05-26] MEDS: methaDONE 80 MG, methaDONE 10 MG PO SCH (05:55)
[2021-05-26 09:26] VITALS: BP 127/82; PULSE 60; TEMP 98.6
[2021-05-26] MEDS: PRENATAL VITAMINS W/ FOLIC ACID TABLET (FP) PO SCH (10:28)
[2021-05-26] MEDS: NICOTINE 21 MG/24 HOURS TOPICAL PATCH TD SCH (10:28)
== END 2021-05-26 13:27 | disposition other institution (70) | DRG 773 ==
LOC: YASAS 13:34 → Y6N 15:14
PROVIDERS: ADMIT Allergy & Immunology; ATTEND Allergy & Immunology
PROC: HZ2ZZZZ Detoxification Services for Substance Abuse Treatment (ICD-10-PCS; principal; 2021-05-22)
DX: F10.230 Alcohol dependence with withdrawal, uncomplicated (principal); F11.23 Opioid dependence with withdrawal; F13.230 Sedative, hypnotic or anxiolytic dependence with withdrawal, uncomplicated; F17.210 Nicotine dependence, cigarettes, uncomplicated; F19.282 Other psychoactive substance dependence with psychoactive substance-induced sleep disorder; F19.280 Other psychoactive substance dependence with psychoactive substance-induced anxiety disorder; F19.24 Other psychoactive substance dependence with psychoactive substance-induced mood disorder; F39 Unspecified mood [affective] disorder; J45.909 Unspecified asthma, uncomplicated; R56.9 Unspecified convulsions; Z62.810 Personal history of physical and sexual abuse in childhood; Z86.2 Personal history of diseases of the blood and blood-forming organs and certain disorders involving the immune mechanism; Z88.0 Allergy status to penicillin; Z88.6 Allergy status to analgesic agent; Z91.013 Allergy to seafood
CPT/HCPCS: 36415; 80053; 85027; 86780; 93005; 93010; C9803; Q0162; U0003; U0005

== ENCOUNTER 2021-05-26 11:33 | Inpatient (IN) | payer OTHER ==
[2021-05-26] MEDS ORDERED: LOPERAMIDE HCL 2 MG CAPSULE PO PRN (14:01)
[2021-05-26] MEDS ORDERED: P-EPHED 60MG/TRIPROLIDI 2.5MG TABLET PO PRN (14:01)
[2021-05-26] MEDS ORDERED: MAGNESIUM CITRATE 300 ML BOTTLE PO PRN (14:01)
[2021-05-26] MEDS ORDERED: MENTHOL/PHENOL 1 EACH UD MM PRN (14:01)
[2021-05-26] MEDS ORDERED: guaiFENesin 200 MG/10 ML 10 ML UNIT-DOSE CUPS PO PRN (14:01)
[2021-05-26] MEDS ORDERED: MAGNESIUM HYDROX 2400MG/30ML ORAL SUSPENSION 30 ML CUP PO PRN (14:01)
[2021-05-26] MEDS ORDERED: ACETAMINOPHEN 325 MG TABLET (FP) PO PRN (14:01)
[2021-05-26] MEDS ORDERED: ALBUTEROL SO4 HFA INHALER IH PRN (14:02)
[2021-05-26] MEDS ORDERED: MASKS NR ONE (15:03)
[2021-05-26] MEDS: BACITRACIN 0.9 GM PACKET TP SCH (15:05)
[2021-05-26] MEDS: MAG HYDROX/AL HYDROX/SIMETH 30 ML UNIT-DOSE CUP PO PRN (15:08)
[2021-05-26] MEDS: hydrOXYzine PAMOATE 25 MG CAPSULE (FP) PO SCH ×2 (17:26→21:03)
[2021-05-26] MEDS: THIAMINE HCL 100 MG TABLET (FP) PO SCH (21:03)
[2021-05-26] MEDS: FAMOTIDINE 20 MG TABLET PO SCH (21:03)
[2021-05-26] MEDS: MELATONIN 5 MG TABLETS PO SCH (21:04)
[2021-05-27] MEDS ORDERED: methaDONE HCL 10 MG TABLET ONE (06:10)
[2021-05-27] MEDS ORDERED: methaDONE HCL 40 MG DISPERSABLE TABLET ONE (06:10)
[2021-05-27] MEDS: methaDONE 80 MG, methaDONE 10 MG PO SCH (06:10)
[2021-05-27] MEDS: hydrOXYzine PAMOATE 25 MG CAPSULE (FP) PO SCH (06:11)
[2021-05-27] MEDS: PRENATAL VITAMINS W/ FOLIC ACID TABLET (FP) PO SCH (09:24)
[2021-05-27] MEDS: FAMOTIDINE 20 MG TABLET PO SCH ×2 (09:24→21:11)
[2021-05-27] MEDS: BACITRACIN 0.9 GM PACKET TP SCH (09:25)
[2021-05-27] MEDS: NICOTINE 7 MG/24 HOURS TOPICAL PATCH TD SCH (09:25)
[2021-05-27] MEDS ORDERED: methaDONE HCL 40 MG DISPERSABLE TABLET PO SCH (10:00)
[2021-05-27] MEDS: hydrOXYzine PAMOATE 50 MG CAPSULE (FP) PO PRN ×2 (11:46→21:12)
[2021-05-27] MEDS ORDERED: PT OWN MED DRAWER 7, Y5N ONE (19:11)
[2021-05-27] MEDS: MELATONIN 5 MG TABLETS PO SCH (21:11)
[2021-05-27] MEDS: THIAMINE HCL 100 MG TABLET (FP) PO SCH (21:11)
[2021-05-27] MEDS: QUEtiapine FUMARATE 100 MG TABLET (FP) PO SCH (21:11)
[2021-05-28] MEDS ORDERED: methaDONE HCL 10 MG TABLET ONE (03:13)
[2021-05-28] MEDS ORDERED: methaDONE HCL 40 MG DISPERSABLE TABLET ONE (03:14)
[2021-05-28] MEDS: methaDONE 80 MG, methaDONE 10 MG PO SCH (06:37)
[2021-05-28] MEDS: NICOTINE 7 MG/24 HOURS TOPICAL PATCH TD SCH (09:46)
[2021-05-28] MEDS: PRENATAL VITAMINS W/ FOLIC ACID TABLET (FP) PO SCH (09:46)
[2021-05-28] MEDS: BACITRACIN 0.9 GM PACKET TP SCH (09:46)
[2021-05-28] MEDS: FAMOTIDINE 20 MG TABLET PO SCH ×2 (09:46→21:37)
[2021-05-28] MEDS: hydrOXYzine PAMOATE 50 MG CAPSULE (FP) PO PRN (09:48)
[2021-05-28] MEDS ORDERED: CEPHALEXIN MONOHYDRATE 500 MG CAPSULE (UD) PO SCH (12:30)
[2021-05-28] MEDS: SULFAMETHOXAZOLE/TRIMETHOPRIM 800MG/160MG D.S. TABLET PO SCH ×2 (13:54→21:37)
[2021-05-28] MEDS: THIAMINE HCL 100 MG TABLET (FP) PO SCH (21:37)
[2021-05-28] MEDS: QUEtiapine FUMARATE 100 MG TABLET (FP) PO SCH (21:37)
[2021-05-28] MEDS: MELATONIN 5 MG TABLETS PO SCH (21:38)
[2021-05-29] MEDS ORDERED: methaDONE HCL 40 MG DISPERSABLE TABLET ONE (03:20)
[2021-05-29] MEDS ORDERED: methaDONE HCL 10 MG TABLET ONE (03:20)
[2021-05-29] MEDS: methaDONE 80 MG, methaDONE 10 MG PO SCH (06:27)
[2021-05-29] MEDS: SULFAMETHOXAZOLE/TRIMETHOPRIM 800MG/160MG D.S. TABLET PO SCH ×2 (09:42→21:41)
[2021-05-29] MEDS: PRENATAL VITAMINS W/ FOLIC ACID TABLET (FP) PO SCH (09:42)
[2021-05-29] MEDS: NICOTINE 7 MG/24 HOURS TOPICAL PATCH TD SCH (09:42)
[2021-05-29] MEDS: FAMOTIDINE 20 MG TABLET PO SCH ×2 (09:42→21:41)
[2021-05-29] MEDS: hydrOXYzine PAMOATE 50 MG CAPSULE (FP) PO PRN (09:43)
[2021-05-29] MEDS: BACITRACIN 0.9 GM PACKET TP SCH (09:47)
[2021-05-29] MEDS: MELATONIN 5 MG TABLETS PO SCH (21:41)
[2021-05-29] MEDS: THIAMINE HCL 100 MG TABLET (FP) PO SCH (21:41)
[2021-05-29] MEDS: QUEtiapine FUMARATE 100 MG TABLET (FP) PO SCH (21:41)
[2021-05-30] MEDS ORDERED: methaDONE HCL 10 MG TABLET ONE (03:22)
[2021-05-30] MEDS ORDERED: methaDONE HCL 40 MG DISPERSABLE TABLET ONE (03:23)
[2021-05-30] MEDS: methaDONE 80 MG, methaDONE 10 MG PO SCH (06:24)
[2021-05-30] MEDS: BACITRACIN 0.9 GM PACKET TP SCH (09:55)
[2021-05-30] MEDS: SULFAMETHOXAZOLE/TRIMETHOPRIM 800MG/160MG D.S. TABLET PO SCH ×2 (09:56→21:57)
[2021-05-30] MEDS: PRENATAL VITAMINS W/ FOLIC ACID TABLET (FP) PO SCH (09:56)
[2021-05-30] MEDS: NICOTINE 7 MG/24 HOURS TOPICAL PATCH TD SCH (09:56)
[2021-05-30] MEDS: FAMOTIDINE 20 MG TABLET PO SCH ×2 (09:57→21:55)
[2021-05-30] MEDS: hydrOXYzine PAMOATE 50 MG CAPSULE (FP) PO PRN (09:58)
[2021-05-30] MEDS: THIAMINE HCL 100 MG TABLET (FP) PO SCH (21:55)
[2021-05-30] MEDS: QUEtiapine FUMARATE 100 MG TABLET (FP) PO SCH (21:55)
[2021-05-30] MEDS: MELATONIN 5 MG TABLETS PO SCH (21:57)
[2021-05-31] MEDS: MAG HYDROX/AL HYDROX/SIMETH 30 ML UNIT-DOSE CUP PO PRN (00:56)
[2021-05-31] MEDS ORDERED: methaDONE HCL 40 MG DISPERSABLE TABLET ONE (03:54)
[2021-05-31] MEDS ORDERED: methaDONE HCL 10 MG TABLET ONE (03:54)
[2021-05-31] MEDS: methaDONE 80 MG, methaDONE 10 MG PO SCH (06:39)
[2021-05-31] MEDS: NICOTINE 7 MG/24 HOURS TOPICAL PATCH TD SCH (09:43)
[2021-05-31] MEDS: SULFAMETHOXAZOLE/TRIMETHOPRIM 800MG/160MG D.S. TABLET PO SCH ×2 (09:43→21:27)
[2021-05-31] MEDS: BACITRACIN 0.9 GM PACKET TP SCH (09:43)
[2021-05-31] MEDS: PRENATAL VITAMINS W/ FOLIC ACID TABLET (FP) PO SCH (09:44)
[2021-05-31] MEDS: FAMOTIDINE 20 MG TABLET PO SCH ×2 (09:44→21:27)
[2021-05-31] MEDS: hydrOXYzine PAMOATE 50 MG CAPSULE (FP) PO PRN (09:45)
[2021-05-31] MEDS: MELATONIN 5 MG TABLETS PO SCH (21:27)
[2021-05-31] MEDS: THIAMINE HCL 100 MG TABLET (FP) PO SCH (21:27)
[2021-05-31] MEDS: QUEtiapine FUMARATE 100 MG TABLET (FP) PO SCH (21:27)
[2021-05-31] MEDS: hydrOXYzine PAMOATE 25 MG CAPSULE (FP) PO SCH (21:28)
[2021-06-01] MEDS ORDERED: methaDONE HCL 10 MG TABLET ONE (03:58)
[2021-06-01] MEDS ORDERED: methaDONE HCL 40 MG DISPERSABLE TABLET ONE (03:59)
[2021-06-01] MEDS: methaDONE 80 MG, methaDONE 10 MG PO SCH (06:27)
[2021-06-01] MEDS: FAMOTIDINE 20 MG TABLET PO SCH ×2 (09:42→21:53)
[2021-06-01] MEDS: SULFAMETHOXAZOLE/TRIMETHOPRIM 800MG/160MG D.S. TABLET PO SCH ×2 (09:43→21:53)
[2021-06-01] MEDS: NICOTINE 7 MG/24 HOURS TOPICAL PATCH TD SCH (09:43)
[2021-06-01] MEDS: PRENATAL VITAMINS W/ FOLIC ACID TABLET (FP) PO SCH (09:43)
[2021-06-01] MEDS: BACITRACIN 0.9 GM PACKET TP SCH (09:43)
[2021-06-01] MEDS: QUEtiapine FUMARATE 100 MG TABLET (FP) PO SCH (21:53)
[2021-06-01] MEDS: THIAMINE HCL 100 MG TABLET (FP) PO SCH (21:53)
[2021-06-01] MEDS: MELATONIN 5 MG TABLETS PO SCH (21:53)
[2021-06-02] MEDS ORDERED: methaDONE HCL 10 MG TABLET ONE (05:41)
[2021-06-02] MEDS ORDERED: methaDONE HCL 40 MG DISPERSABLE TABLET ONE (05:41)
[2021-06-02] MEDS: methaDONE 80 MG, methaDONE 10 MG PO SCH (06:12)
[2021-06-02] MEDS: PRENATAL VITAMINS W/ FOLIC ACID TABLET (FP) PO SCH (09:09)
[2021-06-02] MEDS: FAMOTIDINE 20 MG TABLET PO SCH ×2 (09:10→21:56)
[2021-06-02] MEDS: SULFAMETHOXAZOLE/TRIMETHOPRIM 800MG/160MG D.S. TABLET PO SCH ×2 (09:10→21:56)
[2021-06-02] MEDS: NICOTINE 7 MG/24 HOURS TOPICAL PATCH TD SCH (09:10)
[2021-06-02] MEDS: hydrOXYzine PAMOATE 50 MG CAPSULE (FP) PO PRN (09:11)
[2021-06-02] MEDS: BACITRACIN 0.9 GM PACKET TP SCH (09:12)
[2021-06-02] MEDS: MELATONIN 5 MG TABLETS PO SCH (21:56)
[2021-06-02] MEDS: QUEtiapine FUMARATE 100 MG TABLET (FP) PO SCH (21:56)
[2021-06-02] MEDS: THIAMINE HCL 100 MG TABLET (FP) PO SCH (21:57)
[2021-06-03] MEDS ORDERED: methaDONE HCL 10 MG TABLET ONE (03:26)
[2021-06-03] MEDS ORDERED: methaDONE HCL 40 MG DISPERSABLE TABLET ONE (03:26)
[2021-06-03] MEDS: methaDONE 80 MG, methaDONE 10 MG PO SCH (06:44)
[2021-06-03] MEDS: NICOTINE 7 MG/24 HOURS TOPICAL PATCH TD SCH (09:51)
[2021-06-03] MEDS: BACITRACIN 0.9 GM PACKET TP SCH (09:51)
[2021-06-03] MEDS: PRENATAL VITAMINS W/ FOLIC ACID TABLET (FP) PO SCH (09:52)
[2021-06-03] MEDS: SULFAMETHOXAZOLE/TRIMETHOPRIM 800MG/160MG D.S. TABLET PO SCH ×2 (09:52→21:49)
[2021-06-03] MEDS: FAMOTIDINE 20 MG TABLET PO SCH ×2 (09:52→21:49)
[2021-06-03] MEDS: hydrOXYzine PAMOATE 50 MG CAPSULE (FP) PO PRN (09:53)
[2021-06-03] MEDS: QUEtiapine FUMARATE 100 MG TABLET (FP) PO SCH (21:49)
[2021-06-03] MEDS: MELATONIN 5 MG TABLETS PO SCH (21:49)
[2021-06-03] MEDS: THIAMINE HCL 100 MG TABLET (FP) PO SCH (21:50)
[2021-06-04] MEDS ORDERED: methaDONE HCL 40 MG DISPERSABLE TABLET ONE (03:29)
[2021-06-04] MEDS ORDERED: methaDONE HCL 10 MG TABLET ONE (03:29)
[2021-06-04] MEDS: methaDONE 80 MG, methaDONE 10 MG PO SCH (06:44)
[2021-06-04 06:49] VITALS: PULSE 52; TEMP 97.1
[2021-06-04] MEDS: BACITRACIN 0.9 GM PACKET TP SCH (09:36)
[2021-06-04] MEDS: FAMOTIDINE 20 MG TABLET PO SCH ×2 (09:36→21:28)
[2021-06-04] MEDS: PRENATAL VITAMINS W/ FOLIC ACID TABLET (FP) PO SCH (09:36)
[2021-06-04] MEDS: SULFAMETHOXAZOLE/TRIMETHOPRIM 800MG/160MG D.S. TABLET PO SCH (09:36)
[2021-06-04] MEDS: NICOTINE 7 MG/24 HOURS TOPICAL PATCH TD SCH (09:38)
[2021-06-04] MEDS: hydrOXYzine PAMOATE 50 MG CAPSULE (FP) PO PRN ×2 (09:38→21:28)
[2021-06-04] MEDS: THIAMINE HCL 100 MG TABLET (FP) PO SCH (21:28)
[2021-06-04] MEDS: QUEtiapine FUMARATE 100 MG TABLET (FP) PO SCH (21:28)
[2021-06-04] MEDS: MELATONIN 5 MG TABLETS PO SCH (21:28)
[2021-06-05] MEDS ORDERED: methaDONE HCL 40 MG DISPERSABLE TABLET ONE (03:54)
[2021-06-05] MEDS ORDERED: methaDONE HCL 10 MG TABLET ONE (03:54)
[2021-06-05 06:17] VITALS: BP 122/70
[2021-06-05] MEDS: methaDONE 80 MG, methaDONE 10 MG PO SCH (06:23)
== END 2021-06-05 09:12 | disposition other institution (70) | DRG 772 ==
LOC: YASAS 11:33 → Y3E 11:34
PROVIDERS: ADMIT Allergy & Immunology; ATTEND Allergy & Immunology
PROC: HZ42ZZZ Group Counseling for Substance Abuse Treatment, Cognitive-Behavioral (ICD-10-PCS; principal; 2021-05-26)
DX: F10.20 Alcohol dependence, uncomplicated (principal); F11.20 Opioid dependence, uncomplicated; F13.20 Sedative, hypnotic or anxiolytic dependence, uncomplicated; F17.210 Nicotine dependence, cigarettes, uncomplicated; F19.24 Other psychoactive substance dependence with psychoactive substance-induced mood disorder; F39 Unspecified mood [affective] disorder; F43.10 Post-traumatic stress disorder, unspecified; D64.9 Anemia, unspecified; G47.00 Insomnia, unspecified; J45.909 Unspecified asthma, uncomplicated; Z62.810 Personal history of physical and sexual abuse in childhood; S81.812A Laceration without foreign body, left lower leg, initial encounter; L03.116 Cellulitis of left lower limb; X58.XXXA Exposure to other specified factors, initial encounter; Y93.9 Activity, unspecified; Y92.9 Unspecified place or not applicable; Z63.4 Disappearance and death of family member; Z88.0 Allergy status to penicillin; Z88.1 Allergy status to other antibiotic agents; Z88.6 Allergy status to analgesic agent; Z91.013 Allergy to seafood